=== PATIENT | female | born 1990 | race Caucasian/White ===

== ENCOUNTER 2016-11-04 20:10 | Inpatient (IN) | payer BC ==
[2016-11-04 20:21] LABS: Glucose,Whole Blood 107 mg/dL (75-99)
[2016-11-04] MEDS ORDERED: SODIUM CHLORIDE 0.9% 1,000 ML IV STA (20:28)
[2016-11-04] MEDS ORDERED: RX INFO: IV CONTRAST WAS GIVEN 1 EACH MISC MISCELLANE PRN (20:33)
--- NOTE | 2016-11-04 20:38 | ED ---
Neuro HPI <Joe Mccormick - Last Filed: 11/04/16 22:04> - General Source: patient Mode of arrival: ambulatory Limitations: no limitations - History of Present Illness Is the patient presenting with stroke symptoms?: Yes Last Known Well Date: 11/04/16 Last Known Well Time: 17:00 -: awoke with symptoms <Zen Almanza - Last Filed: 11/04/16 22:16> - General Chief Complaint: Weakness Stated Complaint: Headache Time Seen by Provider: 11/04/16 20:17 - History of Present Illness Initial Comments: This is a pleasant 26-year-old female who has a history of the MTHFR enzyme mutation. She presents to the emergency department today after developing balance issues at about 5 PM. She states she stood up and then noticed that she was off balance. She also states that her entire body feels heavy. 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 She states about an hour ago she started having blurriness in her right eye. She is describing a global blurriness. She is now getting a right-sided headache. She states her balance issues continue to be problematic. Patient states that she feels very off balance sometimes leading to both the left and the right. Patient denies any chest pain or shortness breath. No fever or chills. No difficulty with speech or swallowing. No paresthesias. No extremity weakness or focal weakness. No loss of sensation. Patient states that she has had 9 blood clots previously but is on no anticoagulation or antiplatelet therapy. Patient states that previously she was on both Lovenox and Coumadin and the had a hard time regulating it. She has been taken off medications. Patient does have a family history of poor kind disorders on her mother's side. Patient denies abdominal pain. No nausea vomiting. No change in bowel much urination. No chance of . (Zen Almanza) - Related Data Home Medications: Home Medications Medication Instructions Recorded Confirmed No Known Home Medications [No 11/04/16 11/04/16 Known Home Medications] Allergies/Adverse Reactions: Allergies Allergy/AdvReac Type Severity Reaction Status Date / Time clarithromycin [From Biaxin] Allergy Nausea & Verified 11/04/16 20:51 Vomiting Review of Systems ROS Other: All systems not noted in ROS Statement are negative. <Joe Mccormick - Last Filed: 11/04/16 22:04> ROS Other: All systems not noted in ROS Statement are negative. <Zen Almanza - Last Filed: 11/04/16 22:16> ROS Statement: Those systems with pertinent positive or pertinent negative responses have been documented in the HPI. General Exam <JaceJoe - Last Filed: 11/04/16 22:04> Limitations: no limitations General appearance: alert, anxious Head exam: Present: atraumatic, normocephalic, normal inspection Eye exam: Present: normal appearance, PERRL, EOMI, other (This patient has subjective blurred vision with the right eye. This appears to be more central than anything. She is able to ascertain from the fingers I'm holding up without difficulty). Absent: scleral icterus, conjunctival injection, periorbital swelling Pupils: Present: normal accommodation ENT exam: Present: normal exam, normal oropharynx, mucous membranes moist, TM's normal bilaterally Neck exam: Present: normal inspection, full ROM. Absent: tenderness, meningismus, lymphadenopathy Respiratory exam: Present: normal lung sounds bilaterally. Absent: respiratory distress, wheezes, rales, rhonchi, stridor Cardiovascular Exam: Present: regular rate, normal rhythm, normal heart sounds. Absent: systolic murmur, diastolic murmur, rubs, gallop, clicks GI/Abdominal exam: Present: soft, normal bowel sounds. Absent: distended, tenderness, guarding, rebound, rigid Extremities exam: Present: normal inspection, full ROM, normal capillary refill. Absent: tenderness, pedal edema, joint swelling, calf tenderness Back exam: Present: normal inspection, full ROM Neurological exam: Present: alert, oriented X3, CN II-XII intact, normal gait, other (Patient does have difficulty with Romberg. Patient also appears to have slight pronator drift on the right side.) Psychiatric exam: Present: normal affect, normal mood Skin exam: Present: warm, dry, intact, normal color. Absent: rash <Zen Almanza - Last Filed: 11/04/16 22:16> - General Exam Comments Initial Comments: So well-developed, well-nourished 46-year-old female who appears to be somewhat anxious. Patient appears have good peripheral perfusion. There is no evidence of cyanosis or pallor. No mottling. Capillary refills is 2 seconds. (Zen Almanza) Stroke MDM - Lab Data Result diagrams: 11/04/16 20:35 11/04/16 20:35 <Joe Mccormick - Last Filed: 11/04/16 22:04> - Lab Data Result diagrams: 11/04/16 20:35 11/04/16 20:35 - NIH Stroke Scale 1a. Level of Consciousness: (0) alert 1b. LOC Questions: (0) answers correctly 1c. LOC Commands: (0) performs tasks correctly 2. Best Gaze: (0) normal 3. Visual: (0) no visual loss 4. Facial Palsy: (0) normal symmetrical movement 5a. Motor Arm Left: (0) no drift 5b. Motor Arm Right: (1) drift 6a. Motor Leg Left: (0) no drift 6b. Motor Leg Right: (0) no drift 7. Limb Ataxia: (0) absent 8. Sensory: (0) normal 9. Best Language: (0) no aphasia 10. Dysarthria: (0) normal 11. Extinction/Inattention: (0) no abnormality - EKG Data -: EKG Interpreted by Me (Introverted by Dr. Mccormick) EKG shows normal: axis, intervals, QRS complexes, ST-T waves Rate: tachycardia (Sinus rhythm with sinus tachycardia 103 bpm) <Zen Almanza - Last Filed: 11/04/16 22:16> - Lab Data Lab Results 11/04/16 11/04/16 11/04/16 Range/Units 20:18 20:35 20:35 WBC 8.0 (3.8-10.6) k/uL RBC 4.67 (3.80-5.40) m/uL Hgb 15.0 (11.4-16.0) gm/dL Hct 42.7 (34.0-46.0) % MCV 91.4 (80.0-100.0) fL MCH 32.1 (25.0-35.0) pg MCHC 35.2 (31.0-37.0) g/dL RDW 12.1 (11.5-15.5) % Plt Count 259 (150-450) k/uL Neutrophils % 63 % Lymphocytes % 24 % Monocytes % 7 % Eosinophils % 1 % Basophils % 1 % Neutrophils # 5.1 (1.3-7.7) k/uL Lymphocytes # 1.9 (1.0-4.8) k/uL Monocytes # 0.6 (0-1.0) k/uL Eosinophils # 0.1 (0-0.7) k/uL Basophils # 0.1 (0-0.2) k/uL PT (9.0-12.0) sec INR (<1.1) APTT (22.0-30.0) sec Sodium (137-145) mmol/L Potassium (3.5-5.1) mmol/L Chloride (98-107) mmol/L Carbon Dioxide (22-30) mmol/L Anion Gap mmol/L BUN (7-17) mg/dL Creatinine (0.52-1.04) mg/dL Est GFR (MDRD) Af Amer (>60 ml/min/1.73 sqM) Est GFR (MDRD) Non-Af (>60 ml/min/1.73 sqM) Glucose (74-99) mg/dL POC Glucose (mg/dL) 107 H (75-99) mg/dL POC Glu Custom Harvester ID Khushboo Francis Calcium (8.4-10.2) mg/dL Magnesium (1.6-2.3) mg/dL Total Bilirubin (0.2-1.3) mg/dL AST (14-36) U/L ALT (9-52) U/L Alkaline Phosphatase (38-126) U/L Total Creatine Kinase 66 (30-135) U/L CK-MB (CK-2) <0.2 (0.0-2.4) ng/mL CK-MB (CK-2) Rel Index Troponin I <0.012 (0.000-0.034) ng/mL Total Protein (6.3-8.2) g/dL Albumin (3.5-5.0) g/dL Urine Color Urine Appearance (Clear) Urine pH (5.0-8.0) Ur Specific [place] (1.001-1.035) Urine Protein (Negative) Urine Glucose (UA) (Negative) Urine Ketones (Negative) Urine Blood (Negative) Urine Nitrite (Negative) Urine Bilirubin (Negative) Urine Urobilinogen (<2.0) mg/dL Ur Leukocyte Esterase (Negative) Urine HCG, Qual (Not Detectd) 11/04/16 11/04/16 11/04/16 Range/Units 20:35 20:35 20:56 WBC (3.8-10.6) k/uL RBC (3.80-5.40) m/uL Hgb (11.4-16.0) gm/dL Hct (34.0-46.0) % MCV (80.0-100.0) fL MCH (25.0-35.0) pg MCHC (31.0-37.0) g/dL RDW (11.5-15.5) % Plt Count (150-450) k/uL Neutrophils % % Lymphocytes % % Monocytes % % Eosinophils % % Basophils % % Neutrophils # (1.3-7.7) k/uL Lymphocytes # (1.0-4.8) k/uL Monocytes # (0-1.0) k/uL Eosinophils # (0-0.7) k/uL Basophils # (0-0.2) k/uL PT 10.6 (9.0-12.0) sec INR 1.0 (<1.1) APTT 24.3 (22.0-30.0) sec Sodium 139 (137-145) mmol/L Potassium 4.2 (3.5-5.1) mmol/L Chloride 104 (98-107) mmol/L Carbon Dioxide 22 (22-30) mmol/L Anion Gap 13 mmol/L BUN 12 (7-17) mg/dL Creatinine 0.81 (0.52-1.04) mg/dL Est GFR (MDRD) Af Amer >60 (>60 ml/min/1.73 sqM) Est GFR (MDRD) Non-Af >60 (>60 ml/min/1.73 sqM) Glucose 99 (74-99) mg/dL POC Glucose (mg/dL) (75-99) mg/dL POC Glu Custom Harvester ID Calcium 9.7 (8.4-10.2) mg/dL Magnesium 2.2 (1.6-2.3) mg/dL Total Bilirubin 0.7 (0.2-1.3) mg/dL AST 21 (14-36) U/L ALT 34 (9-52) U/L Alkaline Phosphatase 49 (38-126) U/L Total Creatine Kinase (30-135) U/L CK-MB (CK-2) (0.0-2.4) ng/mL CK-MB (CK-2) Rel Index Troponin I (0.000-0.034) ng/mL Total Protein 8.0 (6.3-8.2) g/dL Albumin 4.6 (3.5-5.0) g/dL Urine Color Light Yellow Urine Appearance Clear (Clear) Urine pH 7.0 (5.0-8.0) Ur Specific [place] 1.029 (1.001-1.035) Urine Protein Negative (Negative) Urine Glucose (UA) Negative (Negative) Urine Ketones Negative (Negative) Urine Blood Negative (Negative) Urine Nitrite Negative (Negative) Urine Bilirubin Negative (Negative) Urine Urobilinogen <2.0 (<2.0) mg/dL Ur Leukocyte Esterase Negative (Negative) Urine HCG, Qual (Not Detectd) 11/04/16 Range/Units 20:56 WBC (3.8-10.6) k/uL RBC (3.80-5.40) m/uL Hgb (11.4-16.0) gm/dL Hct (34.0-46.0) % MCV (80.0-100.0) fL MCH (25.0-35.0) pg MCHC (31.0-37.0) g/dL RDW (11.5-15.5) % Plt Count (150-450) k/uL Neutrophils % % Lymphocytes % % Monocytes % % Eosinophils % % Basophils % % Neutrophils # (1.3-7.7) k/uL Lymphocytes # (1.0-4.8) k/uL Monocytes # (0-1.0) k/uL Eosinophils # (0-0.7) k/uL Basophils # (0-0.2) k/uL PT (9.0-12.0) sec INR (<1.1) APTT (22.0-30.0) sec Sodium (137-145) mmol/L Potassium (3.5-5.1) mmol/L Chloride (98-107) mmol/L Carbon Dioxide (22-30) mmol/L Anion Gap mmol/L BUN (7-17) mg/dL Creatinine (0.52-1.04) mg/dL Est GFR (MDRD) Af Amer (>60 ml/min/1.73 sqM) Est GFR (MDRD) Non-Af (>60 ml/min/1.73 sqM) Glucose (74-99) mg/dL POC Glucose (mg/dL) (75-99) mg/dL POC Glu Custom Harvester ID Calcium (8.4-10.2) mg/dL Magnesium (1.6-2.3) mg/dL Total Bilirubin (0.2-1.3) mg/dL AST (14-36) U/L ALT (9-52) U/L Alkaline Phosphatase (38-126) U/L Total Creatine Kinase (30-135) U/L CK-MB (CK-2) (0.0-2.4) ng/mL CK-MB (CK-2) Rel Index Troponin I (0.000-0.034) ng/mL Total Protein (6.3-8.2) g/dL Albumin (3.5-5.0) g/dL Urine Color Urine Appearance (Clear) Urine pH (5.0-8.0) Ur Specific [place] (1.001-1.035) Urine Protein (Negative) Urine Glucose (UA) (Negative) Urine Ketones (Negative) Urine Blood (Negative) Urine Nitrite (Negative) Urine Bilirubin (Negative) Urine Urobilinogen (<2.0) mg/dL Ur Leukocyte Esterase (Negative) Urine HCG, Qual Not Detected (Not Detectd) - Medical Decision Making Patient was immediately reported to Dr. Mccormick, the ER attending physician. Decision was made to send the patient for a CT, and CT angiogram of the head and neck. (Zen Almanza) Past Medical History Additional Past Medical History / Comment(s): irregular heart rate, factor 5 MTHFR History of Any Multi-Drug Resistant Organisms: None Reported Past Surgical History: Tonsillectomy Additional Past Surgical History / Comment(s): left crapal tunnel release Past Psychological History: No Psychological Hx Reported Smoking Status: Never smoker Past Alcohol Use History: Occasional Past Drug Use History: None Reported <Zen Almanza - Last Filed: 11/04/16 22:16> Course <Joe Mccormick - Last Filed: 11/04/16 22:04> <Zen Almanza - Last Filed: 11/04/16 22:16> Vital Signs 11/04/16 11/04/16 11/04/16 20:11 20:14 20:20 Temperature 98.1 F Pulse Rate 111 H 101 H 104 H Respiratory 20 18 18 Rate Blood Pressure 142/87 116/82 122/78 O2 Sat by Pulse 96 100 98 Oximetry 11/04/16 11/04/16 20:45 21:00 Temperature Pulse Rate 102 H 98 Respiratory 18 16 Rate Blood Pressure 118/87 114/76 O2 Sat by Pulse 100 97 Oximetry - Reevaluation(s) Reevaluation #1: 11/04/16 22:04 Patient reevaluated by myself, Dr. Mccormick. Patient started with feeling off balance followed by some visual problems followed by headache. Patient has continued headache. Patient did have some difficulty with Romberg and walking. Patient does have a history of Mthfr. Case was discussed in detail with Dr. Leyva who will admit for Dr. Hubbard. She recommends adding MRI with and without contrast and MRA as well as neurology consult. Patient was updated. ( Joe Mccormick) Reevaluation #2: 11/04/16 21:14 Patient is essentially unchanged. Patient has no new neurologic findings. Patient states that her headache is mildly worsened. Rating a 4 out of 10 in intensity right parietal area (Zen Almanza) Disposition <Joe Mccormick - Last Filed: 11/04/16 22:04> Time of Disposition: 22:15 Decision to Admit Reason: Admit from EC Decision Date: 11/04/16 Decision Time: 22:16 <Zen Almanza - Last Filed: 11/04/16 22:16> Clinical Impression: Visual disturbance, Gait disturbance, Headache Disposition: ADMITTED IP TO THIS [facility] Condition: Stable
[2016-11-04 20:43] LABS: Basophils # (A) 0.1 k/uL (0-0.2); Basophils % (A) 1 %; CH 32.7; CHCM 35.9; Eosinophils # (A) 0.1 k/uL (0-0.7); Eosinophils % (A) 1 %; HCT 42.7 % (34.0-46.0); HDW 2.45; Luc # (Auto) 0.23; Luc % (Auto) 3; Lymphocytes # (A) 1.9 k/uL (1.0-4.8); Lymphocytes % (A) 24 %; MCH 32.1 pg (25.0-35.0); MCHC 35.2 g/dL (31.0-37.0); MCV 91.4 fL (80.0-100.0); Mean Platelet Volume 7.6; Monocytes # (A) 0.6 k/uL (0-1.0); Monocytes % (A) 7 %; Neutrophils # (A) 5.1 k/uL (1.3-7.7); Neutrophils % (A) 63 %; RBC 4.67 m/uL (3.80-5.40); RDW 12.1 % (11.5-15.5); WBC (Perox) 8.03
[2016-11-04 20:54] LABS: ALT 34 U/L (9-52); AST 21 U/L (14-36); Alkaline Phosphatase 49 U/L (38-126); Anion Gap 13 mmol/L; Blood Urea Nitrogen 12 mg/dL (7-17); Calcium 9.7 mg/dL (8.4-10.2); Carbon Dioxide 22 mmol/L (22-30); Chloride 104 mmol/L (98-107); Glucose 99 mg/dL (74-99); Magnesium 2.2 mg/dL (1.6-2.3); Non-African American GFR(MDRD) >60 (>60 ml/min/1.73 sqM); Partial Thromboplastin Time 24.3 sec (22.0-30.0); Potassium 4.2 mmol/L (3.5-5.1); Prothrombin Time 10.6 sec (9.0-12.0); Sodium 139 mmol/L (137-145); Total Bilirubin 0.7 mg/dL (0.2-1.3)
--- NOTE | 2016-11-04 21:03 | CT ---
EXAMINATION TYPE: CT brain wo con DATE OF EXAM: 11/04/2016 8:49 PM COMPARISON: NONE HISTORY: Patient complains of blurred vision and headache. CT DLP: 849.5 mGycm Automated exposure control for dose reduction was used. FINDINGS: The ventricles and sulci appear normal. There is no mass effect nor midline shift. There is no sign o f intracranial hemorrhage. The calvarium is intact. IMPRESSION: Negative unenhanced head CT scan.
[2016-11-04 21:04] LABS: Appearance,Urine Clear (Clear); Bilirubin,Urine Negative (Negative); Glucose,Urine (UA) Negative (Negative); Ketones,Urine Negative (Negative); Leukocyte Esterase,Urine Negative (Negative); Nitrite,Urine Negative (Negative); Protein,Urine Negative (Negative); Specific Gravity,Urine 1.029 (1.001-1.035); UA Billing (MACRO vs. MICRO) CHEM; Urobilinogen,Urine <2.0 mg/dL (<2.0)
[2016-11-04 21:07] LABS: Creatine Kinase 66 U/L (30-135)
--- NOTE | 2016-11-04 21:19 | CT ---
EXAMINATION TYPE: CT angio head neck DATE OF EXAM: 11/04/2016 9:06 PM COMPARISON: NONE HISTORY: Patient complains of blurry vision and headache. CT DLP: 289.1 mGycm Automated exposure control for dose reduction was used. TECHNIQUE: Performed with IV Contrast, patient injected with 65 mL of Omnipaque 350. There are 3-D post processed images.. FINDINGS: There is normal branching pattern of the great vessels on the aortic arch. Left vertebral artery is l arger than the right. There is contrast opacification of the common internal and external carotid art eries bilaterally. There is no evidence of stenosis. There is no sign of carotid dissection. There is patency of the vertebrobasilar artery system. Basilar artery fills from the left side. I see no patency of the posterior communicating arteries. There is arterial flow in the anterior midd le and posterior cerebral arteries. There is no evidence of aneurysm or neovascularity. There is norm al contrast opacification of the venous sinuses. IMPRESSION: NORMAL CT ANGIOGRAM OF THE NECK. NORMAL CT ANGIOGRAM OF THE BRAIN.
[2016-11-04 21:20] LABS: Creatine Kinase MB <0.2 ng/mL (0.0-2.4); Troponin I <0.012 ng/mL (0.000-0.034)
--- NOTE | 2016-11-04 21:20 | XR ---
EXAMINATION TYPE: XR chest 1V portable DATE OF EXAM: 11/04/2016 9:15 PM COMPARISON: 04/29/2011 HISTORY: Blurred vision TECHNIQUE: Single frontal view of the chest is obtained. FINDINGS: Heart and mediastinum are normal. Lungs are clear. Diaphragm is normal. Bony thorax appear s normal. IMPRESSION: Normal chest. No change.
[2016-11-04] MEDS ORDERED: ASPIRIN 325 MG TAB PO STA (21:36)
[2016-11-04] MEDS ORDERED: MORPHINE SULFATE 4 MG/ML SYRINGE IV STA (22:14)
[2016-11-04] MEDS ORDERED: KETOROLAC 30 MG/ML 1 ML VIAL IVP STA (22:14)
[2016-11-04] MEDS ORDERED: ONDANSETRON 4 MG/2 ML VIAL IVP STA (22:14)
[2016-11-04] MEDS ORDERED: ACETAMINOPHEN TAB 325 MG TAB PO PRN (22:20)
[2016-11-04] MEDS ORDERED: LORazepam 2 MG/ML SYRINGE IV PRN (22:20)
[2016-11-04] MEDS ORDERED: ONDANSETRON 4 MG/2 ML VIAL IVP PRN (22:20)
[2016-11-04] MEDS ORDERED: NALOXONE 0.4 MG/ML 1 ML VIAL IV PRN (22:20)
[2016-11-04] MEDS: 0.9% NACL WITH KCL 20 MEQ/L 1,000 ML IV SCH (22:43)
[2016-11-04 23:10] VITALS: BMI 27.4
[2016-11-05] MEDS ORDERED: MORPHINE SULFATE 4 MG/ML SYRINGE ONE (00:45)
[2016-11-05] MEDS ORDERED: ACETAMINOPHEN TAB 325 MG TAB ONE (00:45)
[2016-11-05 08:18] LABS: Basophils % (A) 1 %; CH 32.4; CHCM 34.5; Eosinophils # (A) 0.1 k/uL (0-0.7); Eosinophils % (A) 2 %; HCT 38.5 % (34.0-46.0); HDW 2.41; HGB 13.3 gm/dL (11.4-16.0); Luc # (Auto) 0.23; Luc % (Auto) 4; Lymphocytes # (A) 2.1 k/uL (1.0-4.8); Lymphocytes % (A) 38 %; MCH 32.4 pg (25.0-35.0); MCHC 34.4 g/dL (31.0-37.0); MCV 94.1 fL (80.0-100.0); Mean Platelet Volume 7.5; Monocytes # (A) 0.4 k/uL (0-1.0); Monocytes % (A) 6 %; Neutrophils # (A) 2.8 k/uL (1.3-7.7); Neutrophils % (A) 49 %; RDW 12.2 % (11.5-15.5); WBC 5.7 k/uL (3.8-10.6); WBC (Perox) 6.18
[2016-11-05 08:29] LABS: ALT 32 U/L (9-52); AST 17 U/L (14-36); Alkaline Phosphatase 44 U/L (38-126); Anion Gap 9 mmol/L; Blood Urea Nitrogen 11 mg/dL (7-17); Calcium 8.7 mg/dL (8.4-10.2); Carbon Dioxide 24 mmol/L (22-30); Chloride 108 mmol/L (98-107); Glucose 84 mg/dL (74-99); Magnesium 2.2 mg/dL (1.6-2.3); Non-African American GFR(MDRD) >60 (>60 ml/min/1.73 sqM); Potassium 4.5 mmol/L (3.5-5.1); Sodium 141 mmol/L (137-145); Total Bilirubin 0.6 mg/dL (0.2-1.3); Total Protein 6.5 g/dL (6.3-8.2)
--- NOTE | 2016-11-05 09:58 | MR ---
EXAMINATION TYPE: MR brain wo/w con DATE OF EXAM: 11/05/2016 9:33 AM COMPARISON: CT brain 11/04/2016 HISTORY: Visual disturbance, headache, balance disturbance CONTRAST: Performed utilizing 15 mL intravenous MultiHance gadolinium contrast. TECHNIQUE: Multiplanar, multiecho imaging on a 3.0 Yovana magnet is performed through the brain. Stud y is performed within 24 hours of arrival to the hospital. The craniovertebral junction is normal. The pituitary is normal. Diffusion-weighted imaging is performed. No abnormal hyperintensity is present to suggest an acute i ntracranial infarct or acute ischemic change. Signal through the brain is normal. No abnormal enhancement is evident. Ventricles and sulci are appropriate for the patient age. Normal vascular flow voids are within the distal internal carotid arteries and in the basilar artery. Portions of the paranasal sinuses mastoid air cells within the [id number] are clear. The orbits ap pear symmetrical and unremarkable. IMPRESSIONS: 1. Normal pre and postcontrast MRI brain
--- NOTE | 2016-11-05 10:05 | MR ---
EXAMINATION TYPE: MR MRA/MRV head wo con DATE OF EXAM: 11/05/2016 9:33 AM COMPARISON: CTA brain 11/04/2016 HISTORY: Visual disturbance, headache Standard multiplanar, multisequence MRI departmental protocol Multiplanar, multisequence images of the 1.5 were acquired. 3-D [id number] imaging is performed t hrough the arterial and venous systems. FINDINGS: MRA: The internal carotid arteries bifurcate normally into A1 and M1 segments. A2 segments appear normal. Middle cerebral artery branches appear normal. The left vertebral artery is dominant. A diminutive right vertebral artery is partially visualized. B asilar artery is unremarkable. Posterior cerebral vasculature appears normal. Posterior communicating arteries are patent. Anterior communicating artery appears to be patent. MRV: Venous phase imaging is performed. 3-D [id number] reconstructed images are reviewed The dural sinuses patent. Straight sinus is patent. Sigmoid sinuses are patent. On the MRV images the re is a filling defect of the left sigmoid sinus. However, this is not identified on source images or MRI brain contrast imaging this may be artifact. This appears to be related to the entrance of a cou ple draining veins MRI brain contrast images. IMPRESSION: 1. Normal MRA nondal[place] of [place]. 2. No suspicious changes MRV brain
[2016-11-05] MEDS: MORPHINE SULFATE 4 MG/ML SYRINGE IV PRN ×3 (10:16→20:35)
[2016-11-05] MEDS: 0.9% NACL WITH KCL 20 MEQ/L 1,000 ML IV SCH (12:16)
[2016-11-05] MEDS ORDERED: MAGNESIUM SULFATE-D5W PMX 1 GM in DEXTROSE/WATER 1 100ML.BAG IVPB SCH (16:05)
--- NOTE | 2016-11-05 16:05 | P.CNNES ---
History of Present Illness Consult date: 11/05/16 Reason for Consult: Visual disturbance, a disturbance History of Present Illness: Patient is a pleasant 26-year-old female who is being evaluated by the neurology service on 11/05/2016 per the request of Dr. Leyva for visual disturbance and gait disturbance. Patient does have history of MTHFR but is currently not on any medication for this. 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 She had come to work and noticed that she was progressively becoming off balance. She reports having had her whole body feel heavy since waking up in the morning. Patient states her vision in her right eye became blurry. Shortly following visual disturbance she noticed a right-sided headache. Patient states headache is ongoing. Patient had CT of the brain done which was negative for any acute process. Patient had CT angiogram of the neck and CT angiogram of the brain both of which were normal. Patient had normal pre-and postcontrast MRI of the brain. Patient's laboratory workup on admission was unremarkable. Vital signs on admission for temperature 98.1, pulse rate 111, respiratory rate 20, blood pressure 142/87, and O2 saturation of 96% on room air. At the time of my evaluation, patient's resting comfortably in bed and appears to be in no acute distress. Review of Systems REVIEW OF SYSTEMS: Otherwise unremarkable and noncontributory. Past Medical History Additional Past Medical History / Comment(s): irregular heart rate, factor 5 MTHFR History of Any Multi-Drug Resistant Organisms: None Reported Past Surgical History: Tonsillectomy Additional Past Surgical History / Comment(s): left crapal tunnel release Past Psychological History: No Psychological Hx Reported Smoking Status: Never smoker Past Alcohol Use History: Occasional Past Drug Use History: None Reported Medications and Allergies Home Medications Medication Instructions Recorded Confirmed Type No Known Home Medications [No 11/04/16 11/04/16 History Known Home Medications] Allergies Allergy/AdvReac Type Severity Reaction Status Date / Time clarithromycin [From Biaxin] Allergy Nausea & Verified 11/04/16 20:51 Vomiting Physical Examination - Vital Signs Vital Signs: Vital Signs Temp Pulse Pulse Resp BP BP Pulse Ox 11/05/16 13:20 97 11/05/16 07:00 97.8 F 81 16 107/63 97 11/05/16 00:00 87 16 04/13/17 23:15 98.2 F 87 16 126/79 96 11/04/16 22:28 98.1 F 96 18 133/90 99 Intake and Output 11/05/16 11/05/16 11/05/16 06:59 14:59 22:59 Intake Total 1600 Balance 1600 Intake: Intake, IV Titration 800 Amount 0.9% NaCl with KCl 20 Meq 800 /l 1,000 ml @ 100 mls/hr IV .Q10H JD Rx#: [id number] Oral 800 Other: Voiding Method Toilet Weight 77.111 kg PHYSICAL EXAM: GENERAL APPEARANCE: Patient is a well-developed, female who appears to be in no acute distress. HEENT: Normocephalic, atraumatic, no facial asymmetry is seen. Neck is supple with no masses felt. CARDIOVASCULAR: Regular rate and rhythm. ABDOMEN: Nontender, nondistended. EXTREMITIES: Show no edema or clubbing. NEUROLOGICAL EXAM: Patient is awake, alert, and oriented 3. Speech and language are normal. Strength is full in all 4 extremities. Sensory exam to light touch is normal in all 4 extremities. No facial asymmetry is seen on cranial nerve testing. No tremors or seizure-like activity noted. Results - Laboratory Findings CBC and BMP: 11/05/16 07:23 11/05/16 07:20 Abnormal Lab Findings: Abnormal Labs 11/05/16 07:20 Chloride 108 H Assessment and Plan Plan: Impression: 1. Migraine with neurological symptoms 2. History of MTHFR 3. Visual disturbance 4. Gait disturbance Recommendations: It does appear that patient has migraine headache with neurological symptoms. As mentioned above, studies up to this point have all been within normal limits. I will order magnesium sulfate, Solu-Medrol, and Reglan to help alleviate the headache. Continue neurological checks. I recommend patient continue to follow with hematology in regards to MTHFR. I will continue to follow with you. Further recommendations to follow. Thank you for allowing me to participate in the care of your patient. Feel free to call me with any questions or concerns. I performed an examination of the patient and discussed the management with the REC THERAPIST. I have reviewed the REC THERAPIST notes and agree with the findings and plan of care.
[2016-11-05] MEDS: METOCLOPRAMIDE 5 MG/ML 2 ML VIAL IVP SCH (17:50)
--- NOTE | 2016-11-05 18:50 | P.HPIM ---
History of Present Illness H&P Date: 11/05/16 Chief Complaint: Impaired balance generalized weakness right-sided headache This is a 26 year old pleasant lady patient of Dr. Odell with known history of MP HFR, factor V Leyden, and 9 previous DVT PE since 2010, follows with Dr. Paulino not on any long-term anticoagulation, patient has had problems with imbalance on the day of admission, patient has generalized weakness from the neck down and right-sided headache. 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 In the emergency room angiography of the neck was performed which shows normal angiogram of the neck and brain without any abnormality or stenosis, patient was admitted with evaluation to include consultation from neurology, orthostatics will be obtained, vasculitis and acute thrombotic infarct is to be ruled out 11/05 2016 no evidence of dissection, MRA shows normal [place] of [place], there is slight filling defect of the left sigmoid sinus however these is not identified on contrast studies this could be artifactual, MR I of the brain shows normal PA and postcontrast studies. Patient was admitted Review of Systems Constitutional: Reports as per HPI, Denies anorexia, Denies chills, Denies chronic headaches, Denies chronic pain, Denies daytime sleepiness, Denies fatigue, Denies fever, Denies lethargy, Denies malaise, Denies night sweats, Denies poor appetite, Denies sweats, Denies weakness, Denies weight gain, Denies weight loss Ears, nose, mouth and throat: Reports as per HPI, Reports vertigo, Denies ant. neck pain, Denies bleeding gums, Denies dental pain, Denies dysphagia, Denies epistaxis, Denies headache, Denies hoarseness, Denies mouth pain, Denies nasal congestion, Denies nasal discharge, Denies neck fullness/pressure, Denies neck lump, Denies nose pain, Denies odynophagia, Denies post-nasal drip, Denies sinus pain, Denies sinus pressure, Denies swelling in mouth, Denies swelling in throat, Denies sore throat, Denies voice changes Cardiovascular: Reports as per HPI, Denies chest pain, Denies claudication, Denies decreased exercise tolerance, Denies dyspnea on exertion, Denies edema, Denies high blood pressure, Denies irregular heart beat, Denies leg edema, Denies lightheadedness, Denies orthopnea, Denies palpitations, Denies paroxysmal nocturnal dyspnea, Denies phlebitis, Denies rapid heart beat, Denies shortness of breath, Denies syncope Respiratory: Reports as per HPI, Denies congestion, Denies cough, Denies cough with sputum, Denies dyspnea, Denies excessive sputum, Denies hemoptysis, Denies home oxygen, Denies pain, Denies pain on inspiration, Denies pleurisy, Denies respiratory infections, Denies sleep apnea, Denies snoring, Denies wheezing Gastrointestinal: Reports as per HPI, Denies abdominal pain, Denies belching, Denies bloating, Denies BRBPR, Denies change in bowel habits, Denies coffee ground emesis, Denies constipation, Denies diarrhea, Denies dyspepsia, Denies early satiety, Denies excessive gas, Denies heartburn, Denies hematemesis, Denies hematochezia, Denies indigestion, Denies jaundice, Denies lactose intolerance, Denies loss of appetite, Denies melena, Denies nausea, Denies vomiting Genitourinary: Reports as per HPI, Denies abnormal vaginal bleeding, Denies decreased libido, Denies difficulty conceiving, Denies difficulty voiding, Denies dysmenorrhea, Denies dyspareunia, Denies dysuria, Denies flank pain, Denies genital sores, Denies hematuria, Denies hot flashes, Denies incomplete emptying, Denies kidney stones, Denies menorrhagia, Denies mixed incontinence, Denies nocturia, Denies pelvic pain, Denies post void dribbling, Denies , Denies prolapse symptoms, Denies stress incontinence, Denies urge incontinence , Denies urgency, Denies urinary frequency, Denies vaginal discharge, Denies vaginal dryness, Denies vaginal itching, Denies vaginal odor Menstruation: Reports as per HPI Musculoskeletal: Reports as per HPI, Reports gait dysfunction, Reports muscle weakness, Reports myalgias, Denies arm numbness/tingling, Denies atrophy, Denies fractures, Denies frequent falls, Denies hot joints, Denies leg numbness/ tingling, Denies limitation of motion, Denies loss of height, Denies low back pain, Denies morning stiffness, Denies muscle cramps, Denies neck pain, Denies neck stiffness, Denies prior amputations, Denies redness of joints, Denies shooting arm pain, Denies shooting leg pain Integumentary: Reports as per HPI, Denies acne, Denies boils, Denies brittle nails, Denies change in hair/nails, Denies color changes, Denies darkening of skin, Denies depigmentation, Denies dryness, Denies foot/leg ulcers, Denies growths, Denies hirsutism, Denies lesions, Denies onychomycosis, Denies pruritus , Denies rash, Denies sores, Denies striae, Denies unusual bruising, Denies wounds Neurological: Reports as per HPI, Denies aphasia, Denies ataxia, Denies balance difficulties, Denies burning pain, Denies change in mentation, Denies change in smell/taste, Denies change in speech, Denies confusion, Denies convulsions, Denies double vision, Denies gait dysfunction, Denies head injury, Denies headaches, Denies hearing difficulties, Denies lack of coordination, Denies loss of vision, Denies memory loss, Denies migraines, Denies motor disturbance, Denies numbness, Denies paralysis, Denies paresthesias, Denies seizures, Denies sensory deficit, Denies spasticity, Denies syncope, Denies tic, Denies tingling , Denies transient paralysis, Denies tremors, Denies vertigo, Denies weakness, Denies visual changes Psychiatric: Reports as per HPI, Denies anhedonia, Denies anxiety, Denies anxiety attacks, Denies change in appetite, Denies change in libido, Denies change in sleep habits, Denies confusion, Denies depression, Denies difficulty concentrating, Denies disorientation, Denies hallucinations, Denies hopelessness , Denies hypersomnia, Denies insomnia, Denies irritability, Denies memory loss, Denies mood swings, Denies paranoia, Denies sadness/tearfulness, Denies sleep disturbances, Denies suicidal ideation Endocrine: Reports as per HPI, Denies cold intolerance, Denies deepening of the voice, Denies excessive sweating, Denies excessive thirst, Denies fatigue, Denies flushing, Denies heat intolerance, Denies high blood sugars, Denies increase in ring/shoe/hat size, Denies low blood sugars, Denies nocturia, Denies palpitations, Denies polydipsia, Denies polyphagia, Denies polyuria, Denies proptosis, Denies recent glucocorticoid use, Denies thyroid mass, Denies weight change Hematologic/Lymphatic: Reports as per HPI, Denies easy bleeding, Denies easy bruising, Denies lymphadenopathy, Denies lymphedema, Denies thrombophilia Allergic/Immunologic: Reports as per HPI, Denies allergic rhinitis, Denies anaphylaxis, Denies angioedema, Denies gluten intolerance, Denies persistent infections, Denies seasonal allergies, Denies urticaria, Denies wheezing Past Medical History Past Medical History: Pulmonary Embolus (PE) (2010 had 9 episodes off PE/DVT mostofthemarewithnovomiting) Additional Past Medical History / Comment(s): irregular heart rate, factor 5 MTHFR History of Any Multi-Drug Resistant Organisms: None Reported Past Surgical History: Tonsillectomy Additional Past Surgical History / Comment(s): left crapal tunnel release Past Psychological History: No Psychological Hx Reported Smoking Status: Never smoker Past Alcohol Use History: Occasional Past Drug Use History: None Reported - Past Family History Father Family Medical History: No Reported History Mother History Unknown: Yes (MT HFR and factor V) Sister(s) History Unknown: Yes (MT HFR) Medications and Allergies Home Medications Medication Instructions Recorded Confirmed Type No Known Home Medications [No 11/04/16 11/04/16 History Known Home Medications] Allergies Allergy/AdvReac Type Severity Reaction Status Date / Time clarithromycin [From Biaxin] Allergy Nausea & Verified 11/04/16 20:51 Vomiting Physical Exam Vitals: Vital Signs Temp Pulse Pulse Resp BP BP Pulse Ox 11/05/16 13:20 97 11/05/16 07:00 97.8 F 81 16 107/63 97 11/05/16 00:00 87 16 11/04/16 23:15 98.2 F 87 16 126/79 96 11/04/16 22:28 98.1 F 96 18 133/90 99 Intake and Output 0411/05/16 11/05/16 22:59 06:59 14:59 Intake Total 1600 Balance 1600 Intake: Intake, IV Titration 800 Amount 0.9% NaCl with KCl 20 Meq 800 /l 1,000 ml @ 100 mls/hr IV .Q10H [facility] Rx#: [id number] Oral 800 Other: Voiding Method Toilet Weight 77.111 kg - Constitutional General appearance: average body habitus, cooperative, no acute distress - EENT Eyes: no abnormal pupil, anicteric sclerae, no disc margins sharp, no edentulous , EOMI, PERRLA, no fundus normal, no photophobia, no dentition normal, no poor dentition, no ptosis, no scleral icterus, normal appearance ENT: no hard of hearing, hearing grossly normal, NA/AT, normal oropharynx, no other, no pharyngeal erythema, no thrush, no tonsillar exudates, no tonsillar swelling - Neck Neck: no lymphadenopathy, normal ROM, no other, no rigidity, no stridor, no thyromegaly - Respiratory Respiratory: bilateral: CTA, negative: diminished, dullness, rales, rhonchi, wheezing, prolonged expiration - Cardiovascular Rhythm: regular Heart sounds: normal: S1, S2 Abnormal Heart Sounds: no systolic murmur, no diastolic murmur, no rub, no S3 Gallop, no S4 Gallop, no click, no other - Gastrointestinal General gastrointestinal: normal bowel sounds, soft - Integumentary Integumentary: normal, normal turgor - Neurologic Neurologic: CNII-XII intact - Musculoskeletal Musculoskeletal: gait normal (Minor impairment noted with the left), strength equal bilaterally ( sided gait instability) - Psychiatric Psychiatric: A&O x's 3, appropriate affect, intact judgment & insight Results CBC & Chem 7: 11/05/16 07:23 11/05/16 07:20 Labs: Abnormal Lab Results - Last 24 Hours (Table) 11/05/16 Range/Units 07:20 Chloride 108 H (98-107) mmol/L Laboratory Results WBC 5.7 k/uL (3.8-10.6) 11/05/16 07:23 RBC 4.10 m/uL (3.80-5.40) 11/05/16 07:23 Hgb 13.3 gm/dL (11.4-16.0) 11/05/16 07:23 Hct 38.5 % (34.0-46.0) 11/05/16 07:23 MCV 94.1 fL (80.0-100.0) 11/05/16 07:23 MCH 32.4 pg (25.0-35.0) 11/05/16 07:23 MCHC 34.4 g/dL (31.0-37.0) 11/05/16 07:23 RDW 12.2 % (11.5-15.5) 11/05/16 07:23 Plt Count 217 k/uL (150-450) 11/05/16 07:23 Neutrophils % 49 % 11/05/16 07:23 Lymphocytes % 38 % 11/05/16 07:23 Monocytes % 6 % 11/05/16 07:23 Eosinophils % 2 % 11/05/16 07:23 Basophils % 1 % 11/05/16 07:23 Neutrophils # 2.8 k/uL (1.3-7.7) 11/05/16 07:23 Lymphocytes # 2.1 k/uL (1.0-4.8) 11/05/16 07:23 Monocytes # 0.4 k/uL (0-1.0) 11/05/16 07:23 Eosinophils # 0.1 k/uL (0-0.7) 11/05/16 07:23 Basophils # 0.0 k/uL (0-0.2) 11/05/16 07:23 PT 10.6 sec (9.0-12.0) 11/04/16 20:35 INR 1.0 (<1.1) 11/04/16 20:35 APTT 24.3 sec (22.0-30.0) 11/04/16 20:35 Sodium 141 mmol/L (137-145) 11/05/16 07:20 Potassium 4.5 mmol/L (3.5-5.1) 11/05/16 07:20 Chloride 108 mmol/L (98-107) H 11/05/16 07:20 Carbon Dioxide 24 mmol/L (22-30) 11/05/16 07:20 Anion Gap 9 mmol/L 11/05/16 07:20 BUN 11 mg/dL (7-17) 11/05/16 07:20 Creatinine 0.86 mg/dL (0.52-1.04) 11/05/16 07:20 Est GFR (MDRD) Af Amer >60 (>60 ml/min/1.73 sqM) 11/05/16 07:20 Est GFR (MDRD) Non-Af >60 (>60 ml/min/1.73 sqM) 11/05/16 07:20 Glucose 84 mg/dL (74-99) 11/05/16 07:20 POC Glucose (mg/dL) 107 mg/dL (75-99) H 11/04/16 20:18 POC Glu Cold Roll Inspector ID Khushboo Francis 11/04/16 20:18 Calcium 8.7 mg/dL (8.4-10.2) 11/05/16 07:20 Magnesium 2.2 mg/dL (1.6-2.3) 11/05/16 07:20 Total Bilirubin 0.6 mg/dL (0.2-1.3) 11/05/16 07:20 AST 17 U/L (14-36) 11/05/16 07:20 ALT 32 U/L (9-52) 11/05/16 07:20 Alkaline Phosphatase 44 U/L (38-126) 11/05/16 07:20 Total Creatine Kinase 66 U/L (30-135) 11/04/16 20:35 CK-MB (CK-2) <0.2 ng/mL (0.0-2.4) 11/04/16 20:35 CK-MB (CK-2) Rel Index 11/04/16 20:35 Troponin I <0.012 ng/mL (0.000-0.034) 11/04/16 20:35 Total Protein 6.5 g/dL (6.3-8.2) 11/05/16 07:20 Albumin 3.7 g/dL (3.5-5.0) 11/05/16 07:20 Vitamin B12 275 pg/mL (239-931) 11/05/16 07:20 Urine Color Light Yellow 11/04/16 20:56 Urine Appearance Clear (Clear) 11/04/16 20:56 Urine pH 7.0 (5.0-8.0) 11/04/16 20:56 Ur Specific [place] 1.029 (1.001-1.035) 11/04/16 20:56 Urine Protein Negative (Negative) 11/04/16 20:56 Urine Glucose (UA) Negative (Negative) 11/04/16 20:56 Urine Ketones Negative (Negative) 11/04/16 20:56 Urine Blood Negative (Negative) 11/04/16 20:56 Urine Nitrite Negative (Negative) 11/04/16 20:56 Urine Bilirubin Negative (Negative) 11/04/16 20:56 Urine Urobilinogen <2.0 mg/dL (<2.0) 11/04/16 20:56 Ur Leukocyte Esterase Negative (Negative) 11/04/16 20:56 Urine HCG, Qual Not Detected (Not Detectd) 11/04/16 20:56 Thrombosis Risk Factor Assmnt - DVT/VTE Prophylaxis DVT/VTE Prophylaxis: Pharmacologic Prophylaxis ordered, Mechanical Prophylaxis ordered - Choose All That Apply Each Risk Factor Represents 3 Points: Positive Factor V Leiden, Family history of DVT/PE Thrombosis Risk Factor Assessment Total Risk Factor Score: 6 Thrombosis Risk Factor Assessment Level: High Risk Assessment and Plan Plan: 1. 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 Known history of factor V laden with MTHFR mutation 3. Prior history of PE DVT last episode 2010 4. Right-sided headache, with multifactorial, patient does not have any history of migraines, hydration and sleep needs to be corrected, melatonin 6 mg was started, magnesium sulfate was given, with morphine when necessary Zofran when necessary morphine when necessary patient was started on Solu-Medrol by neurology 5. DVT prophylaxis with her high risk genetics, she'll be started on Lovenox and mechanical prophylaxis 6. GI prophylaxis IV Pepcid Ovarian cyst history under workup by [place] [employer] SEWER
[2016-11-05] MEDS ORDERED: MELATONIN 3 MG TABLET PO SCH (21:00)
[2016-11-06] MEDS: METOCLOPRAMIDE 5 MG/ML 2 ML VIAL IVP SCH ×2 (00:40→07:36)
[2016-11-06] MEDS: MORPHINE SULFATE 4 MG/ML SYRINGE IV PRN ×3 (00:49→10:35)
[2016-11-06 07:47] LABS: Basophils % (A) 0 %; CH 32.4; CHCM 33.8; Eosinophils % (A) 0 %; HCT 43.6 % (34.0-46.0); HDW 2.31; HGB 14.4 gm/dL (11.4-16.0); Luc # (Auto) 0.05; Luc % (Auto) 1; Lymphocytes # (A) 0.5 k/uL (1.0-4.8); Lymphocytes % (A) 9 %; MCH 31.7 pg (25.0-35.0); MCHC 32.9 g/dL (31.0-37.0); MCV 96.2 fL (80.0-100.0); Mean Platelet Volume 7.6; Monocytes % (A) 1 %; Neutrophils # (A) 5.2 k/uL (1.3-7.7); Neutrophils % (A) 90 %; RBC 4.53 m/uL (3.80-5.40); RDW 12.6 % (11.5-15.5); WBC 5.8 k/uL (3.8-10.6); WBC (Perox) 6.12
[2016-11-06 07:56] VITALS: BP 110/72; PULSE 89; RESP 12; TEMP 96.3
[2016-11-06 08:00] LABS: ALT 31 U/L (9-52); AST 18 U/L (14-36); Alkaline Phosphatase 52 U/L (38-126); Anion Gap 14 mmol/L; Blood Urea Nitrogen 11 mg/dL (7-17); Calcium 9.5 mg/dL (8.4-10.2); Carbon Dioxide 22 mmol/L (22-30); Chloride 104 mmol/L (98-107); Glucose 134 mg/dL (74-99); Non-African American GFR(MDRD) >60 (>60 ml/min/1.73 sqM); Potassium 4.4 mmol/L (3.5-5.1); Sodium 140 mmol/L (137-145); Total Bilirubin 0.7 mg/dL (0.2-1.3); Total Protein 7.7 g/dL (6.3-8.2)
[2016-11-06 09:08] LABS: Erythrocyte Sedimentation Rate 5 mm/hr (0-20)
[2016-11-06 09:21] LABS: C Reactive Protein <5.0 mg/L (<10.0)
[2016-11-06] MEDS ORDERED: CYANOCOBALAMIN 500 MCG TAB PO SCH (12:00)
--- NOTE | 2016-11-06 13:11 | P.PN ---
Subjective Principal diagnosis: Patient is a pleasant 26-year-old female who is being followed by the neurology service for gait disturbance and visual disturbance. 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 Patient reports changes in vision in her right eye. Patient states she noticed a severe headache on the right side shortly following visual changes. Patient had CT of the brain which was negative for any acute process. Patient had CT angiogram of neck and CT angios of the brain both of which were normal. Patient had normal pre-and postcontrast MRI of the brain as well. Patient's laboratory workup was unremarkable. Patient continues to have changes in her vision in her right eye as well as headache. Patient did receive IV Solu-Medrol, magnesium sulfate bolus, and Reglan which did not alleviate her symptoms. At the time of my evaluation, patient's resting comfortably in bed and appears to be in no acute distress. Objective - Vital Signs Vital signs: Vital Signs Temp 96.3 F L 11/06/16 07:00 Pulse 89 11/06/16 07:00 Resp 12 11/06/16 08:00 BP 110/72 11/06/16 07:00 Pulse Ox 97 11/06/16 07:00 Intake & Output 11/05/16 11/06/16 11/06/16 18:59 06:59 18:59 Intake Total 40 Balance 40 Intake: IV 40 Sodium Chloride 0.9% 1, 40 000 ml @ 20 mls/hr IV . Q24H [facility] Rx#:[id number] Other: Voiding Method Toilet Toilet # Voids 2 1 - Exam PHYSICAL EXAM: GENERAL APPEARANCE: Patient is a well-developed, female who appears to be in no acute distress. HEENT: Normocephalic, atraumatic, no facial asymmetry is seen. Neck is supple with no masses felt. CARDIOVASCULAR: Regular rate and rhythm. ABDOMEN: Nontender, nondistended. EXTREMITIES: Show no edema or clubbing. NEUROLOGICAL EXAM: Patient is awake, alert, and oriented 3. Speech and language are normal. Strength is full in all 4 extremities. Sensory exam to light touch is normal in all 4 extremities. No facial asymmetry is seen on cranial nerve testing. No tremors or seizure-like activity is seen. - Labs CBC & Chem 7: 11/06/16 06:37 11/06/16 06:37 Labs: Abnormal Lab Results - Last 24 Hours (Table) 11/06/16 11/06/16 Range/Units 06:37 06:37 Lymphocytes # 0.5 L (1.0-4.8) k/uL Glucose 134 H (74-99) mg/dL Assessment and Plan Plan: Impression: 1. Migraine with neurological symptoms 2. History of MTHFR 3. Visual disturbance 4. Gait disturbance Recommendations: It does appear the patient has migraine headache with neurological symptoms. As mentioned above, studies up to this point have all been within normal limits. As previously mentioned, patient did receive magnesium sulfate, Solu-Medrol, and Reglan to help alleviate the headache without success. Continue neurological checks. Due to ongoing headache and visual changes, I do recommend a stat ophthalmology consult. There is concern for pseudotumor cerebri. If unable to provide a stat ophthalmology consult, I recommend transferring the patient out. At this point, I understand patient is to be transferred out to [facility]. I recommend patient continue to follow with hematology in regards to MTHFR. I will continue to follow with you. Further recommendations to follow. I performed an examination of the patient and discussed the management with the NETBACKUP ENGINEER. I have reviewed the NETBACKUP ENGINEER notes and agree with the findings and plan of care.
--- NOTE | 2016-11-17 14:43 | P.DS ---
Providers Date of admission: 11/04/16 22:06 Expected date of discharge: 11/06/16 Attending physician: Saumya Leyva Consults: 11/04/16 22:20 Consult Physician Stat Consulting Provider: Karson Rosas Consult Reason/Comments: Visual disturbance, gait disturbance, headache Do you want consulting provider notified?: Yes 11/06/16 10:15 Consult Physician Stat Consulting Provider: Martha Robles Consult Reason/Comments: pseudotumor cerebri/blurred vision Do you want consulting provider notified?: Yes Primary care physician: Artem Odell [facility] Course: This is a 26 year old pleasant lady patient of Dr. Odell with known history of MP HFR, factor V Leyden, and 9 previous DVT PE since 2010, follows with Dr. Paulino not on any long-term anticoagulation, patient has had problems with imbalance on the day of admission, patient has generalized weakness from the neck down and right-sided headache. 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 In the emergency room angiography of the neck was performed which shows normal angiogram of the neck and brain without any abnormality or stenosis, patient was admitted with evaluation to include consultation from neurology, orthostatics will be obtained, vasculitis and acute thrombotic infarct is to be ruled out 11/05 2016 no evidence of dissection, MRA shows normal [place] of [place], there is slight filling defect of the left sigmoid sinus however these is not identified on contrast studies this could be artifactual, MR I of the brain shows normal PA and postcontrast studies. Patient was admitted Patient was transferred to [facility] on 11/06/2016. Discharge diagnoses: 1. 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 Known history of factor V laden with MTHFR mutation 3. Prior history of PE DVT last episode 2010 4. Right-sided headache, with multifactorial, patient does not have any history of migraines, hydration and sleep needs to be corrected, melatonin 6 mg was started, magnesium sulfate was given, with morphine when necessary Zofran when necessary morphine when necessary patient was started on Solu-Medrol by neurology 5. DVT prophylaxis with her high risk genetics, she'll be started on Lovenox and mechanical prophylaxis 6. GI prophylaxis IV Pepcid 7. 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 Rhiannon Alves nurse practitioner acting as scribe for signing physician. Patient Condition at Discharge: Stable Plan - Discharge Summary Discharge Medication List Butalb/APAP/Caff 50-325-40Mg [Fioricet 50-325-40] 1 each PO Q6HR PRN #40 tab [Rx] Ondansetron [Zofran] 4 mg PO Q8HR PRN #30 tab 11/08/16 [Rx] Follow up Appointment(s)/Referral(s): Artem Odell MD [Primary Care Provider] - 1-2 days Discharge Disposition: TRANSFER TO SHORT TERM HOSP
== END 2016-11-06 12:58 | disposition short-term general hospital (02) | DRG 103 ==
LOC: EC 20:10 → 5ONC 22:06
PROVIDERS: ADMIT Family Medicine; ATTEND Family Medicine
DX: G93.2 Benign intracranial hypertension (principal); G43.909 Migraine, unspecified, not intractable, without status migrainosus; R26.9 Unspecified abnormalities of gait and mobility; Z86.711 Personal history of pulmonary embolism; Z86.718 Personal history of other venous thrombosis and embolism
CPT/HCPCS: 36415; 70450; 70496; 70498; 70544; 70553; 71010; 80053; 81003; 81025; 82550; 82553; 82607; 83735; 84443; 84484; 85025; 85610; 85652; 85730; 86038; 86140; 93005; 96374; 96375; 99285

== ENCOUNTER 2016-11-06 21:10 | Observation (INO) | payer BC ==
[2016-11-06] MEDS ORDERED: MORPHINE SULFATE 4 MG/ML SYRINGE IV STA (21:43)
[2016-11-06] MEDS ORDERED: methylPREDNISolone SOD SUCCI 125 MG/2 ML VIAL IV STA (21:43)
[2016-11-06] MEDS ORDERED: METOCLOPRAMIDE 5 MG/ML 2 ML VIAL IVP STA (21:49)
--- NOTE | 2016-11-06 21:57 | ED ---
Headache HPI - General Chief Complaint: Weakness Stated Complaint: weakness Time Seen by Provider: 11/06/16 21:22 Mode of arrival: ambulatory Limitations: no limitations - History of Present Illness Initial Comments: This patient is a 26-year-old woman, coming to be evaluated for right-sided headache, right-sided visual changes, and a feeling of being off balance. All of the symptoms had started on . She states that she initially had a feeling like she was off balance and felt like her body was somewhat heavy. She went to work in the evening and then began experiencing the visual changes with the right eye. She states that things looked blurry. She describes seeing halos and floaters. about 15 or 20 minutes later she developed right sided headache from the temporal parietal back to the occipital area. She states that it is aching/burning pain. She was then seen in the emergency department here, she had CT and CT angio, and was admitted for further neurology workup. The patient subsequently had MRI/MRA performed, and all the studies were negative. She was seen by the neurologist. This morning she was transferred to [facility] in [place] to have an ophthalmology consult. Patient states that while she was there they stopped the medications for headache, and told her that they want to perform an LP. The patient did not have an ophthalmology consult. The patient then left and came back here to be seen. MD Complaint: headache -: days(s) Onset Description: gradual Location: right, temporal, occipital, other Severity: moderate Quality: aching, constant Consistency: constant Improves With: nothing Worsens With: none Context: occurred at rest - Related Data Previous Rx's Medication Instructions Recorded Butalb/APAP/Caff 50-325-40Mg 1 each PO Q6HR PRN #40 tab 11/08/16 [Fioricet 50-325-40] Ondansetron [Zofran] 4 mg PO Q8HR PRN #30 tab 11/08/16 Allergies Allergy/AdvReac Type Severity Reaction Status Date / Time clarithromycin [From Biaxin] Allergy Nausea & Verified 11/07/16 07:29 Vomiting Review of Systems ROS Statement: Those systems with pertinent positive or pertinent negative responses have been documented in the HPI. ROS Other: All systems not noted in ROS Statement are negative. Constitutional: Denies: fever, chills, weakness Eyes: Reports: vision change. Denies: eye pain, eye discharge ENT: Denies: hearing loss Respiratory: Denies: cough, dyspnea Cardiovascular: Denies: chest pain, palpitations, syncope Gastrointestinal: Denies: abdominal pain, vomiting, diarrhea Musculoskeletal: Denies: back pain Skin: Denies: rash Neurological: Reports: headache, abnormal gait Past Medical History Past Medical History: Pulmonary Embolus (PE) Additional Past Medical History / Comment(s): irregular heart rate, factor 5 MTHFR History of Any Multi-Drug Resistant Organisms: None Reported Past Surgical History: Tonsillectomy Additional Past Surgical History / Comment(s): left crapal tunnel release Past Psychological History: No Psychological Hx Reported Smoking Status: Never smoker Past Alcohol Use History: Occasional Past Drug Use History: None Reported - Past Family History Father Family Medical History: No Reported History Mother History Unknown: Yes (MT HFR and factor V) Sister(s) History Unknown: Yes (MT HFR) General Exam Limitations: no limitations General appearance: alert, in no apparent distress Head exam: Present: atraumatic, normocephalic Eye exam: Present: normal appearance, PERRL, EOMI. Absent: scleral icterus, conjunctival injection, nystagmus, periorbital swelling, periorbital tenderness ENT exam: Present: normal oropharynx, mucous membranes moist Neck exam: Present: normal inspection, full ROM Respiratory exam: Present: normal lung sounds bilaterally. Absent: respiratory distress, wheezes, rales, rhonchi, stridor Cardiovascular Exam: Present: regular rate, normal rhythm, normal heart sounds. Absent: systolic murmur, diastolic murmur, rubs, gallop GI/Abdominal exam: Present: soft. Absent: distended, tenderness, guarding, rebound, mass Extremities exam: Present: normal inspection, normal capillary refill. Absent: pedal edema, calf tenderness Back exam: Present: normal inspection. Absent: CVA tenderness (R), CVA tenderness (L) Skin exam: Present: warm, dry, intact, normal color. Absent: rash Course Vital Signs 11/06/16 11/06/16 11/07/16 21:13 23:03 00:26 Temperature 98.7 F 98.0 F Pulse Rate 87 79 65 Respiratory 18 18 18 Rate Blood Pressure 135/87 99/71 109/58 O2 Sat by Pulse 95 100 98 Oximetry 11/07/16 01:39 Temperature Pulse Rate 71 Respiratory 18 Rate Blood Pressure 113/57 O2 Sat by Pulse 95 Oximetry Medical Decision Making - Medical Decision Making Patient is 26-year-old woman with headache and visual change. She had been transferred to [facility], but had not been seen by ophthalmology there. She presents here again with continued headache and visual symptoms. Not able to obtain much symptomatic relief and she'll be admitted for further symptom control. - Lab Data Result diagrams: 11/06/16 22:00 11/06/16 22:00 Lab Results 11/06/16 11/06/16 Range/Units 22:00 22:00 WBC 16.2 H (3.8-10.6) k/uL RBC 4.43 (3.80-5.40) m/uL Hgb 14.3 (11.4-16.0) gm/dL Hct 40.9 (34.0-46.0) % MCV 92.5 (80.0-100.0) fL MCH 32.3 (25.0-35.0) pg MCHC 34.9 (31.0-37.0) g/dL RDW 12.1 (11.5-15.5) % Plt Count 284 (150-450) k/uL Neutrophils % 85 % Lymphocytes % 5 % Monocytes % 8 % Eosinophils % 0 % Basophils % 0 % Neutrophils # 13.8 H (1.3-7.7) k/uL Lymphocytes # 0.8 L (1.0-4.8) k/uL Monocytes # 1.3 H (0-1.0) k/uL Eosinophils # 0.0 (0-0.7) k/uL Basophils # 0.0 (0-0.2) k/uL ESR 5 (0-20) mm/hr Sodium 142 (137-145) mmol/L Potassium 4.3 (3.5-5.1) mmol/L Chloride 106 (98-107) mmol/L Carbon Dioxide 24 (22-30) mmol/L Anion Gap 12 mmol/L BUN 14 (7-17) mg/dL Creatinine 0.75 (0.52-1.04) mg/dL Est GFR (MDRD) Af Amer >60 (>60 ml/min/1.73 sqM) Est GFR (MDRD) Non-Af >60 (>60 ml/min/1.73 sqM) Glucose 108 H (74-99) mg/dL Calcium 10.0 (8.4-10.2) mg/dL Total Bilirubin 0.5 (0.2-1.3) mg/dL AST 15 (14-36) U/L ALT 29 (9-52) U/L Alkaline Phosphatase 49 (38-126) U/L Total Protein 8.0 (6.3-8.2) g/dL Albumin 4.6 (3.5-5.0) g/dL Disposition Clinical Impression: Headache, Visual disturbance Disposition: ADMITTED IP TO THIS [facility] Condition: Good
[2016-11-06 22:21] LABS: Basophils % (A) 0 %; CH 32.8; CHCM 35.6; Eosinophils % (A) 0 %; HCT 40.9 % (34.0-46.0); HDW 2.42; HGB 14.3 gm/dL (11.4-16.0); Luc # (Auto) 0.21; Luc % (Auto) 1; Lymphocytes # (A) 0.8 k/uL (1.0-4.8); Lymphocytes % (A) 5 %; MCH 32.3 pg (25.0-35.0); MCHC 34.9 g/dL (31.0-37.0); MCV 92.5 fL (80.0-100.0); Mean Platelet Volume 7.5; Monocytes # (A) 1.3 k/uL (0-1.0); Monocytes % (A) 8 %; Neutrophils # (A) 13.8 k/uL (1.3-7.7); Neutrophils % (A) 85 %; RBC 4.43 m/uL (3.80-5.40); RDW 12.1 % (11.5-15.5); WBC 16.2 k/uL (3.8-10.6); WBC (Perox) 16.57
[2016-11-06 22:32] LABS: ALT 29 U/L (9-52); AST 15 U/L (14-36); Alkaline Phosphatase 49 U/L (38-126); Anion Gap 12 mmol/L; Blood Urea Nitrogen 14 mg/dL (7-17); Carbon Dioxide 24 mmol/L (22-30); Chloride 106 mmol/L (98-107); Glucose 108 mg/dL (74-99); Non-African American GFR(MDRD) >60 (>60 ml/min/1.73 sqM); Potassium 4.3 mmol/L (3.5-5.1); Sodium 142 mmol/L (137-145); Total Bilirubin 0.5 mg/dL (0.2-1.3)
[2016-11-06] MEDS ORDERED: SUMAtriptan SUCCINATE 6 MG/0.5 ML VIAL SQ STA (23:24)
[2016-11-06 23:39] LABS: Erythrocyte Sedimentation Rate 5 mm/hr (0-20)
[2016-11-07] MEDS ORDERED: BUTALB/APAP/CAFF 50-325-40MG TAB PO STA ×2 (00:30→02:45)
[2016-11-07] MEDS ORDERED: diphenhydrAMINE 50 MG/ML 1 ML VIAL IVP STA (01:22)
[2016-11-07] MEDS ORDERED: METOCLOPRAMIDE 5 MG/ML 2 ML VIAL IVP STA (01:22)
[2016-11-07] MEDS ORDERED: DIHYDROERGOTAMINE MESYLATE 1 MG/ML 1 ML AMP IM STA (02:02)
[2016-11-07] MEDS ORDERED: KETOROLAC 30 MG/ML 1 ML VIAL IVP STA (02:28)
[2016-11-07] MEDS ORDERED: PROCHLORPERAZINE 10 MG TAB PO STA (02:30)
[2016-11-07] MEDS ORDERED: ONDANSETRON 4 MG ODT STARTER PACK 2 TAB BTL PO STA (02:45)
[2016-11-07] MEDS ORDERED: NALOXONE 0.4 MG/ML 1 ML VIAL IV PRN (02:53)
[2016-11-07] MEDS ORDERED: METOCLOPRAMIDE 5 MG/ML 2 ML VIAL IVP PRN (02:59)
[2016-11-07 04:00] VITALS: BMI 26.1
[2016-11-07] MEDS: BUTALB/APAP/CAFF 50-325-40MG TAB PO PRN ×5 (04:03→21:56)
[2016-11-07] MEDS: SODIUM CHLORIDE 0.9% 1,000 ML IV SCH ×3 (04:18→21:57)
--- NOTE | 2016-11-07 12:44 | PN ---
Patient returned from [facility] after she left AGAINST MEDICAL ADVICE yesterday, saying that they mistreated and it was not fair to be treated that way. 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 The patient said that her gait has become more stable, but still having some blurry vision in the right eye. Said that it is improved from before, but not quite completely, quite back to normal. PHYSICAL EXAMINATION: VITAL SIGNS: Reviewed and stable. LUNGS: Clear to auscultation bilaterally. HEART: Normal S1, S2. ABDOMEN: Soft, no tenderness, positive bowel sounds in all 4 quadrants. Gait stable. Vision: Patient reporting visual blurriness in her right eye. Imaging and labs: CBC, normal, Chem-7 slight elevation in her creatinine at 1.30. ASSESSMENT AND PLAN: 1. Blurry vision with gait instability, which resolved completely. The patient was having migraine attack. We will continue with Fioricet as needed, which showed improvement in the symptoms. I discussed with the patient that what she has done when she left AGAINST MEDICAL ADVICE at [facility] was mistake and as she was getting the right evaluation by doing lumbar puncture and doing as well eye examination. Patient currently is improving and I would like to monitor over the next 24 hours. Patient will feel safer if she stays in the hospital and get discharged in the morning to do her exam in the morning and I did not promise the patient that this happen tomorrow, but she insists to stay overnight and we will keep her overnight and continue with current migraine headache regimen. 2. Dehydration. We will continue with gentle hydration. 3. Obesity. Counseled regarding weight loss. 4. History of factor V deficiency and ( ) of in the past. Conservative management and follow up outpatient with primary care physician. 5. Discharge planning in the morning.
[2016-11-07] MEDS: ONDANSETRON 4 MG/2 ML VIAL IVP PRN ×2 (12:49→19:48)
[2016-11-07 22:11] VITALS: TEMP 98.1
[2016-11-08] MEDS: ONDANSETRON 4 MG/2 ML VIAL IVP PRN (06:18)
[2016-11-08] MEDS: BUTALB/APAP/CAFF 50-325-40MG TAB PO PRN ×2 (06:22→10:53)
[2016-11-08] MEDS: SODIUM CHLORIDE 0.9% 1,000 ML IV SCH (07:54)
[2016-11-08 08:55] VITALS: BP 120/83; PULSE 79; RESP 18
--- NOTE | 2016-11-17 14:44 | P.DS ---
Providers Date of admission: 11/07/16 02:58 Expected date of discharge: 11/08/16 Attending physician: Nayla Ellison Primary care physician: Artem Odell [facility] Course: This is a 26 year old female patient of Dr. Odell with known history of MTHFR, factor V Leiden deficiency and 9 previous DVT PE since 2010, follows with Dr. Lala, not on any long-term anticoagulation. Patient has had problems with imbalance on the day of initial admission, 11/04, patient has generalized weakness from the neck down and right-sided headache. 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 Patient has no isolated motor deficits. She has symptoms of almost passing out from a bending position. She was subsequently seen emergency room with evaluation as her risk of thrombotic disease is higher from her mutation. CAT scan of the brain was negative for any acute process. CT angiogram of the neck and CT angios of the brain both weren't normal. Patient had normal pre-and post contract MRI of the brain as well that was normal. Laboratory workup was unremarkable she received IV Solu-Medrol, magnesium sulfate and Reglan which did not relieve her symptoms. Patient was followed during that admission neurology with recommendations for ophthalmology consult and patient was transferred [facility]. Once at [facility], patient states that they stopped her medications and a ophthalmology consult was requested and they also recommended an LP. Patient left there AMA and came to [facility] emergency center to be readmitted. Patient's gait has become more stable but still having some blurry vision in the right eye but improved from previous. Not back to normal at this point. Patient was placed on Fioricet for migraine attack. 11/08: Patient states that she continues to have a headache but improved with Fioricet. She does have some nausea as well. She is walking a little bit. She is nauseated but can keep food down when she eats. Patient will be discharged home today in stable condition and will be given prescriptions for Fioricet and Zofran. Patient has been instructed to follow-up with Dr. Odell within the week and also follow up with Dr. Rosas regarding headache. Discharge diagnoses: 1. Migraine headache 2. Acute ataxia with impaired gait and balance, generalized body weakness, resolved 3. Dehydration 4. Obesity 5. History of factor V deficiency with DVT and PE in the past Discharge plan: Return home Impression and plan of care have been directed as dictated by the signing physician. Rhiannon Alves nurse practitioner acting as scribe for signing physician. Patient Condition at Discharge: Good Plan - Discharge Summary New Discharge Prescriptions: Butalb/APAP/Caff 50-325-40Mg [Fioricet 50-325-40] 1 each PO Q6HR PRN #40 tab PRN Reason: Headache Ondansetron [Zofran] 4 mg PO Q8HR PRN #30 tab PRN Reason: Nausea Discharge Medication List Butalb/APAP/Caff 50-325-40Mg [Fioricet 50-325-40] 1 each PO Q6HR PRN #40 tab [Rx] Ondansetron [Zofran] 4 mg PO Q8HR PRN #30 tab 11/08/16 [Rx] Follow up Appointment(s)/Referral(s): Artem Odell MD [Primary Care Provider] - 11/11/16 11:15 am Karson Rosas MD [STAFF PHYSICIAN] - 1 Week (Office will call you with appointment.) Patient Instructions/Handouts: Acute Headache (DC) Discharge Disposition: HOME SELF-CARE
== END 2016-11-08 12:45 | disposition home or self-care (01) ==
LOC: EC 21:10 → 4MS4W 11-07 02:58 → 5ONC 11-07 03:21
PROVIDERS: ADMIT Internal Medicine; ATTEND Internal Medicine
DX: G43.909 Migraine, unspecified, not intractable, without status migrainosus (principal); H53.19 Other subjective visual disturbances; Z88.3 Allergy status to other anti-infective agents; R26.0 Ataxic gait; Z86.711 Personal history of pulmonary embolism; E72.12 Methylenetetrahydrofolate reductase deficiency; D68.2 Hereditary deficiency of other clotting factors; E86.0 Dehydration; Z86.718 Personal history of other venous thrombosis and embolism
CPT/HCPCS: 99285 ×2; 96374 ×2; 96375 ×4; 96376 ×2; 36415; 80053; 85652; 85025; 96372; G0378 ×2; J3030; J2270; J1200; J2765 ×3; J2930; J2405 ×2

== ENCOUNTER 2017-12-09 13:09 | Emergency (ER) | payer BC ==
[2017-12-09 13:17] VITALS: RESP 18
--- NOTE | 2017-12-09 13:55 | ED ---
General Adult HPI - General Chief complaint: Extremity Problem,Nontraumatic Stated complaint: poss clot lt leg Time Seen by Provider: 12/09/17 13:18 Source: patient, RN notes reviewed, old records reviewed Mode of arrival: ambulatory Limitations: no limitations - History of Present Illness Initial comments: This is a 27-year-old female the ER for evaluation. This patient does say for evaluation regards to possible DVT. Patient has history of and CHF are, factor V. Patient has history of bilateral PE. Patient denies chest pain or shortness of breath. Complaining of left leg pain. Patient also admits to right wrist pain. Patient admits to recent does admit to recent long flight - Related Data Home Medications Medication Instructions Recorded Confirmed Escitalopram Oxalate [Lexapro] 20 mg PO DAILY 12/09/17 12/09/17 Previous Rx's Medication Instructions Recorded Apixaban [Eliquis] 5 mg PO BID #60 tab 12/09/17 Apixaban [Eliquis] 10 mg PO BID #28 tablet 12/09/17 Allergies Allergy/AdvReac Type Severity Reaction Status Date / Time clarithromycin [From Biaxin] Allergy Nausea & Verified 12/09/17 13:50 Vomiting Review of Systems ROS Statement: Those systems with pertinent positive or pertinent negative responses have been documented in the HPI. ROS Other: All systems not noted in ROS Statement are negative. Past Medical History Past Medical History: Pulmonary Embolus (PE) Additional Past Medical History / Comment(s): irregular heart rate, factor 5 MTHFR History of Any Multi-Drug Resistant Organisms: None Reported Past Surgical History: Adenoidectomy, Tonsillectomy Additional Past Surgical History / Comment(s): left carpal tunnel release Past Anesthesia/Blood Transfusion Reactions: No Reported Reaction Past Psychological History: No Psychological Hx Reported Smoking Status: Never smoker Past Alcohol Use History: Occasional Past Drug Use History: None Reported - Past Family History Father Family Medical History: No Reported History Mother History Unknown: Yes (MT HFR and factor V) Additional Family Medical History / Comment(s): factor 5 MTHFR Sister(s) History Unknown: Yes (MT HFR) Additional Family Medical History / Comment(s): blood clotting disorder that runs in the family. General Exam Limitations: no limitations General appearance: alert, in no apparent distress Head exam: Present: atraumatic, normocephalic, normal inspection Eye exam: Present: normal appearance, PERRL, EOMI. Absent: scleral icterus, conjunctival injection, periorbital swelling ENT exam: Present: normal exam, mucous membranes moist Neck exam: Present: normal inspection. Absent: tenderness, meningismus, lymphadenopathy Respiratory exam: Present: normal lung sounds bilaterally. Absent: respiratory distress, wheezes, rales, rhonchi, stridor Cardiovascular Exam: Present: regular rate, normal rhythm, normal heart sounds. Absent: systolic murmur, diastolic murmur, rubs, gallop, clicks GI/Abdominal exam: Present: soft, normal bowel sounds. Absent: distended, tenderness, guarding, rebound, rigid Extremities exam: Present: normal inspection, full ROM, normal capillary refill , calf tenderness, other (Left lower extremity edema and calf tenderness). Absent: tenderness, pedal edema, joint swelling Back exam: Present: normal inspection Neurological exam: Present: alert, oriented X3, CN II-XII intact Psychiatric exam: Present: normal affect, normal mood Skin exam: Present: warm, dry, intact, normal color. Absent: rash Course Vital Signs 12/09/17 13:14 Temperature 97.7 F Pulse Rate 89 Respiratory 18 Rate Blood Pressure 133/81 O2 Sat by Pulse 100 Oximetry - Reevaluation(s) Reevaluation #1: 12/09/17 15:[address] Lane regarding treatment options, recommendations given Medical Decision Making - Medical Decision Making 27 female the ER for evaluation of leg pain wrist pain. Positive superficial thrombosis, we'll start on anticoagulation follow-up with Dr. Lane/Dai in 1 month - Radiology Data Radiology results: report reviewed (Ultrasound unresponsive from both a superficial, ultrasound left leg positive for saphenous vein thrombosis to the CFv), image reviewed Disposition Clinical Impression: Superficial thrombosis of left lower extremity Narrative: Right Wrist Superficial Thrombus Disposition: HOME SELF-CARE Condition: Good Instructions: Superficial Thrombophlebitis (ED), Deep Venous Thrombosis (ED) Prescriptions: Apixaban [Eliquis] 5 mg PO BID #60 tab Apixaban [Eliquis] 10 mg PO BID #28 tablet Is patient prescribed a controlled substance at d/c from ED?: No Referrals: Artem Odell MD [Primary Care Provider] - 1-2 days Gabe Lala MD [STAFF PHYSICIAN] - 1-2 days
--- NOTE | 2017-12-09 15:25 | US ---
EXAMINATION TYPE: US venous doppler duplex LE LT DATE OF EXAM: 12/09/2017 3:00 PM COMPARISON: NONE CLINICAL HISTORY: Pain. Pain left leg for 1 week. Edema left leg noticed this morning. History of PE. Factor 5 disorder SIDE PERFORMED: left TECHNIQUE: The lower extremity deep venous system is examined utilizing real time linear array sonog eryn with graded compression, doppler sonography and color-flow sonography. VESSELS IMAGED: External Iliac Vein (EIV) Common Femoral Vein Deep Femoral Vein Greater Saphenous Vein * Femoral Vein Popliteal Vein Small Saphenous Vein * Proximal Calf Veins (* superficial vessels) Grayscale, color doppler, spectral doppler imaging performed of the deep veins of the left lower extr emity. There is normal flow, compressibility, vascular waveforms. Left Leg: No evidence of acute DVT as visualized. Thrombus noted within left greater saphenous vein at CFV junction extending down to lower thigh IMPRESSION: Superficial thrombus within the left greater saphenous vein. No sonographic evidence of deep venous thrombosis within the left lower extremity.
--- NOTE | 2017-12-09 15:29 | US ---
EXAMINATION TYPE: US venous doppler duplex UE RT DATE OF EXAM: 12/09/2017 COMPARISON: NONE CLINICAL HISTORY: Pain. Hard lump right wrist for 4 days SIDE PERFORMED: right Grayscale, color doppler, spectral doppler imaging performed of the deep veins of the upper extremiti es. There is normal flow, com superficial venous thrombosis compressibility and vascular waveforms. Right Arm: No evidence of DVT as visualized. Superficial thrombus noted within area of lump at outer wrist IMPRESSION: 1. No sonographic evidence of deep venous thrombosis within the right upper extremity. 2. Superficial venous thrombosis at the site of palpable abnormality within the right wrist.
[2017-12-09] MEDS ORDERED: APIXABAN 5 MG TAB PO STA (15:49)
[2017-12-09 16:03] VITALS: BP 126/75; PULSE 88; TEMP 98.5
== END 2017-12-09 16:10 | disposition home or self-care (01) ==
LOC: EC 13:09
DX: I82.402 Acute embolism and thrombosis of unspecified deep veins of left lower extremity (principal); M25.531 Pain in right wrist; Z86.711 Personal history of pulmonary embolism; Z79.899 Other long term (current) drug therapy; Z88.1 Allergy status to other antibiotic agents
CPT/HCPCS: 99284

== ENCOUNTER → 2018-03-06 | Outpatient (CLI) | payer BC ==
--- NOTE | 2018-03-06 16:11 | US ---
EXAMINATION TYPE: US venous doppler duplex LE LT DATE OF EXAM: 03/06/2018 3:53 PM COMPARISON: US CLINICAL HISTORY: Calf Pain M79.669. Medial left thigh to knee pain; prior SVT left leg; on blood thi nner; Factor V SIDE PERFORMED: Left TECHNIQUE: The lower extremity deep venous system is examined utilizing real time linear array sonog eryn with graded compression, doppler sonography and color-flow sonography. VESSELS IMAGED: Common Femoral Vein Deep Femoral Vein Greater Saphenous Vein * Femoral Vein Popliteal Vein Small Saphenous Vein * Proximal Calf Veins (* superficial vessels) IMPRESSION: Left Leg: Negative for DVT. 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 Tech findings called to message machine at Dr. Paulino's [facility].
== END | disposition home or self-care (01) ==
LOC: RADUSWWP 15:24
PROVIDERS: ATTEND Orthopaedic Surgery Sports Medicine
DX: I80.02 Phlebitis and thrombophlebitis of superficial vessels of left lower extremity (principal); M79.89 Other specified soft tissue disorders

== ENCOUNTER → 2019-04-13 | Outpatient (CLI) | payer BC ==
[2019-04-13 17:14] LABS: Basophils # (A) 0.1 k/uL (0-0.2); Basophils % (A) 1 %; Eosinophils # (A) 0.1 k/uL (0-0.7); Eosinophils % (A) 1 %; HCT 42.2 % (34.0-46.0); HGB 14.7 gm/dL (11.4-16.0); Lymphocytes % (A) 29 %; MCV 91.6 fL (80.0-100.0); Mean Platelet Volume 7.6; Monocytes # (A) 0.4 k/uL (0-1.0); Monocytes % (A) 6 %; Neutrophils # (A) 4.1 k/uL (1.3-7.7); Neutrophils % (A) 60 %; Platelet Count 319 k/uL (150-450); RBC 4.61 m/uL (3.80-5.40); RDW 11.8 % (11.5-15.5); WBC 6.7 k/uL (3.8-10.6)
--- NOTE | 2019-04-13 17:25 | XR ---
EXAMINATION TYPE: XR abdomen acute w cxr DATE OF EXAM: 04/13/2019 COMPARISON: Chest x-ray 11/04/2016 HISTORY: TECHNIQUE: Chest x-ray with supine and upright abdomen FINDINGS: Heart and mediastinum are normal. Lungs are clear. Diaphragm is normal. Bowel gas pattern is normal. There is no sign of intestinal obstruction or pneumoperitoneum. Fecal pa ttern is normal. There are no pathologic calcifications over the kidneys. IMPRESSION: Nonacute abdomen. Normal chest. No change.
[2019-04-13 17:28] LABS: ALT 35 U/L (9-52); AST 25 U/L (14-36); African American GFR (CKD) >90 (>60 ml/min/1.73 sqM); Albumin 4.8 g/dL (3.5-5.0); Albumin/Globulin Ratio 1.5; Alkaline Phosphatase 63 U/L (38-126); Amylase 88 U/L (30-110); Anion Gap 12 mmol/L; Blood Urea Nitrogen 11 mg/dL (7-17); Calcium 9.8 mg/dL (8.4-10.2); Carbon Dioxide 26 mmol/L (22-30); Chloride 102 mmol/L (98-107); Globulin 3.2 g/dL; Glucose 94 mg/dL (74-99); LDH 419 U/L (313-618); Potassium 4.1 mmol/L (3.5-5.1); Sodium 140 mmol/L (137-145); Total Bilirubin 0.3 mg/dL (0.2-1.3)
== END | disposition home or self-care (01) ==
LOC: LABWHC1 16:47
PROVIDERS: ATTEND Family Medicine
DX: R19.7 Diarrhea, unspecified (principal)
CPT/HCPCS: 36415; 74022; 80053; 82150; 83615; 83690; 84443; 85025; 85379

== ENCOUNTER → 2019-04-16 | Outpatient (CLI) | payer BC ==
--- NOTE | 2019-04-16 11:16 | CT ---
EXAMINATION TYPE: CT abdomen pelvis w con DATE OF EXAM: 04/16/2019 COMPARISON: None HISTORY: 28 year-old female left lower quadrant pain with vomiting TECHNIQUE: Contiguous axial scanning of the abdomen and pelvis following administration of 100 ml Iso maribel 300 IV contrast. Delayed images through the kidneys and coronal/sagittal reconstructions perform ed. CT DLP: 651.2 mGycm Automated exposure control for dose reduction was used. FINDINGS: Heart normal size without pericardial effusion. Prominent dependent atelectasis in the posterior lung bases. No pleural effusion. No focal liver lesion or biliary ductal dilatation. Portal venous system is patent. Gallbladder, adrenal glands, kidneys, spleen, and pancreas appear within normal limits. No dilated small bowel, free fluid, or free air. Normal appendix is visualized, for example, axial image 50 and coronal image 36. 2 contrast progressed to the upper ascending colon. There is moderate overall stone burden with mildl y redundant sigmoid colon. No pericolonic inflammatory change. No mesenteric or retroperitoneal lymphadenopathy. Uterus is anteverted. Follicular changes of the left ovary. There is a 2.1 cm dominant follicle or fu nctional cyst within the right ovary. No abnormal fluid collection in the pelvis or pelvic lymphadeno bigg seen. Bones: No osseous destructive process. IMPRESSION: 1. FOLLICULAR CHANGE IN BOTH OVARIES WITH A 2.1 CM DOMINANT FOLLICLE OR FUNCTIONAL CYST IN THE RIGHT OVARY. 2. MODERATE STOOL BURDEN WITH A MILDLY REDUNDANT SIGMOID COLON. 3. OTHERWISE, NO ACUTE INFLAMMATORY PROCESS IDENTIFIED IN THE ABDOMEN OR PELVIS TO EXPLAIN THE PATIEN T'S SYMPTOMS.
== END | disposition home or self-care (01) ==
LOC: RADCTMAIN 08:23
PROVIDERS: ATTEND Family Medicine
DX: R19.5 Other fecal abnormalities (principal)
CPT/HCPCS: 74177; Q9967

== ENCOUNTER → 2020-08-21 | Outpatient (CLI) | payer BC ==
--- NOTE | 2020-08-21 13:18 | US ---
EXAMINATION TYPE: US venous doppler duplex LE LT DATE OF EXAM: 08/21/2020 11:16 AM COMPARISON: US 2018 CLINICAL HISTORY: 30-year-old female LLE; pain in left lower limb; hx of ember PE. Left calf pain, hist ory of DVT and SVT, patient is 11 weeks , on blood thinners. SIDE PERFORMED: Left TECHNIQUE: The lower extremity deep venous system is examined utilizing real time linear array sonog eryn with graded compression, doppler sonography and color-flow sonography. FINDINGS: VESSELS IMAGED: Common Femoral Vein Deep Femoral Vein Greater Saphenous Vein * Femoral Vein Popliteal Vein Small Saphenous Vein * Proximal Calf Veins (* superficial vessels) Left Leg: Appears negative for DVT IMPRESSION: No evidence for DVT within the left lower extremity imaged from the groin to the upper calf.
== END | disposition home or self-care (01) ==
LOC: RADUSWWP 10:42
PROVIDERS: ATTEND Obstetrics & Gynecology
DX: M79.662 Pain in left lower leg (principal); Z86.711 Personal history of pulmonary embolism; Z33.1 Pregnant state, incidental

== ENCOUNTER 2020-10-27 14:01 | Emergency (ER) | payer BC ==
[2020-10-27 14:07] VITALS: RESP 18
--- NOTE | 2020-10-27 14:15 | ED ---
SOB HPI - General Source: patient, RN notes reviewed Mode of arrival: ambulatory Limitations: no limitations <Harjinder Mccain - Last Filed: 10/27/20 14:11> <Jaclyn Anders - Last Filed: 10/27/20 19:28> - General Chief Complaint: Shortness of Breath Stated Complaint: Sent by pcpBakari PE Time Seen by Provider: 10/27/20 14:06 - History of Present Illness Initial Comments: Abigail is a 30-year-old female with a history of factor V Leiden and MTH afar as well as a history of pulmonary embolism in the past. Patient was previously on Eliquis the medication was discontinued, she found out in July she is and was started on Lovenox 80 mg daily. Patient reports that over the past week she has had a pleuritic pain in her right posterior chest. Pain is associated with mild shortness of breath, patient reports that her shortness of breath is not as significant as it was with previous pulmonary embolism but at time of diagnoses she had multiple emboli in all lobes of the lungs. She was evaluated by her veterinary science teacher today who advised her to come to the emergency department for workup for possible pulmonary embolism. She denies any fevers, chills, cough. Pain is pleuritic in nature worse with deep breaths or movement. Pain is located in the right posterior chest. (Jaclyn Anders) - Related Data Home Medications Medication Instructions Recorded Confirmed Aspirin EC [Ecotrin Low Dose] 81 mg PO HS 10/27/20 10/27/20 Calcium Carbonate/Vitamin D3 1 tab PO HS 10/27/20 10/27/20 [Calcium 500 mg-Vit D3 5 mcg (200 Unit)] Enoxaparin Sodium 80 mg SQ HS 10/27/20 10/27/20 Allergies Allergy/AdvReac Type Severity Reaction Status Date / Time clarithromycin [From Biaxin] Allergy Nausea & Verified 10/27/20 18:55 Vomiting Review of Systems ROS Other: All systems not noted in ROS Statement are negative. <Harjinder Mccain - Last Filed: 10/27/20 14:11> ROS Other: All systems not noted in ROS Statement are negative. <Jaclyn Anders - Last Filed: 10/27/20 19:28> ROS Statement: Those systems with pertinent positive or pertinent negative responses have been documented in the HPI. Past Medical History Past Medical History: Pulmonary Embolus (PE) Additional Past Medical History / Comment(s): irregular heart rate, factor 5 MTHFR History of Any Multi-Drug Resistant Organisms: None Reported Past Surgical History: Adenoidectomy, Tonsillectomy Additional Past Surgical History / Comment(s): left carpal tunnel release Past Anesthesia/Blood Transfusion Reactions: No Reported Reaction Past Psychological History: No Psychological Hx Reported Smoking Status: Never smoker Past Alcohol Use History: Occasional Past Drug Use History: None Reported - Past Family History Father Family Medical History: No Reported History Mother History Unknown: Yes (MT HFR and factor V) Additional Family Medical History / Comment(s): factor 5 MTHFR Sister(s) History Unknown: Yes (MT HFR) Additional Family Medical History / Comment(s): blood clotting disorder that runs in the family. <Harjinder Mccain - Last Filed: 10/27/20 14:11> General Exam Limitations: no limitations <Harjinder Mccain - Last Filed: 10/27/20 14:11> <Jaclyn Anders - Last Filed: 10/27/20 19:28> - General Exam Comments Initial Comments: 30-year-old female presents emergency Department with chief complaint of possible PE. Patient was sent in by Dr. Duong her WRECKING SUPERVISOR. Patient is 20 weeks A0. Patient states that she does have factor 5 and MTFHR and which she is on Lovenox injections twice daily. Patient states that she's been having right posterior chest pain. Patient states that she has had some shortness of breath but is not a usual. She does have a history of clots. (Harjinder Mccain) Physical Exam GENERAL: Patient is well-developed and well-nourished. Patient is nontoxic and well-hydrated and is in no distress. HENT: Normocephalic, Atraumatic. EYES: PERRL, EOMI PULMONARY: Unlabored respirations. CARDIOVASCULAR: RRR Warm and well perfused extremities ABDOMEN: Non-distended SKIN: No rashes or bruising : Deferred NEUROLOGIC: Alert and oriented Normal speech Normal gait MUSCULOSKELETAL: Moving all extremities with no apparent injury PSYCHIATRIC: No SI/HI (Jaclyn Anders) Course Vital Signs 10/27/20 14:03 Temperature 98 F Pulse Rate 89 Respiratory 18 Rate Blood Pressure 129/88 O2 Sat by Pulse 99 Oximetry Medical Decision Making - Lab Data Result diagrams: 10/27/20 14:14 10/27/20 14:14 <Jaclyn Anders - Last Filed: 10/27/20 19:28> - Medical Decision Making The patient was seen and evaluated, history is obtained from the patient 30-year-old female very high risk for pulmonary embolism she is currently on Lovenox YEARS algorithm recommends CT scan due to high risk and elevated D-dimer If patient is positive for PE we will double her dose of Lovenox, because diagnosis will change her management I would recommend the patient undergo computed tomography scan regardless of status. Risks and benefits of computed tomography scan were discussed with the patient. She is agreeable. (Jaclyn Anders) - Lab Data Lab Results 10/27/20 10/27/20 10/27/20 Range/Units 14:14 14:14 14:14 WBC 5.8 (3.8-10.6) k/uL RBC 3.97 (3.80-5.40) m/uL Hgb 13.2 (11.4-16.0) gm/dL Hct 36.9 (34.0-46.0) % MCV 92.9 (80.0-100.0) fL MCH 33.4 (25.0-35.0) pg MCHC 35.9 (31.0-37.0) g/dL RDW 12.5 (11.5-15.5) % Plt Count 225 (150-450) k/uL MPV 8.2 Neutrophils % 63 % Lymphocytes % 27 % Monocytes % 7 % Eosinophils % 1 % Basophils % 1 % Neutrophils # 3.6 (1.3-7.7) k/uL Lymphocytes # 1.6 (1.0-4.8) k/uL Monocytes # 0.4 (0-1.0) k/uL Eosinophils # 0.1 (0-0.7) k/uL Basophils # 0.0 (0-0.2) k/uL PT 9.4 (9.0-12.0) sec INR 0.9 (<1.2) APTT 24.8 (22.0-30.0) sec D-Dimer 1.02 H (<0.60) mg/L FEU Sodium 134 L (137-145) mmol/L Potassium 3.9 (3.5-5.1) mmol/L Chloride 104 (98-107) mmol/L Carbon Dioxide 21 L (22-30) mmol/L Anion Gap 9 mmol/L BUN 8 (7-17) mg/dL Creatinine 0.54 (0.52-1.04) mg/dL Est GFR (CKD-EPI)AfAm >90 (>60 ml/min/1.73 sqM) Est GFR (CKD-EPI)NonAf >90 (>60 ml/min/1.73 sqM) Glucose 120 H (74-99) mg/dL Calcium 9.0 (8.4-10.2) mg/dL Disposition <Harjinder Mccain - Last Filed: 10/27/20 14:11> Is patient prescribed a controlled substance at d/c from ED?: No <Jaclyn Anders - Last Filed: 10/27/20 19:28> Clinical Impression: Pleuritic chest pain Disposition: HOME SELF-CARE Condition: Stable Additional Instructions: Your CT scan was negative for pulmonary embolism, continue your lovenox as prescribed. Take Tylenol for pain. Stay hydrated. Follow up with Dr Duong Return to the ER for any worsening of pain or development of new or concerning symptoms. Referrals: Astrid Howard MD [Primary Care Provider] - 1-2 days
[2020-10-27 14:25] LABS: Basophils % (A) 1 %; Eosinophils # (A) 0.1 k/uL (0-0.7); Eosinophils % (A) 1 %; HCT 36.9 % (34.0-46.0); HGB 13.2 gm/dL (11.4-16.0); Lymphocytes # (A) 1.6 k/uL (1.0-4.8); Lymphocytes % (A) 27 %; MCH 33.4 pg (25.0-35.0); MCHC 35.9 g/dL (31.0-37.0); MCV 92.9 fL (80.0-100.0); Mean Platelet Volume 8.2; Monocytes # (A) 0.4 k/uL (0-1.0); Monocytes % (A) 7 %; Neutrophils # (A) 3.6 k/uL (1.3-7.7); Neutrophils % (A) 63 %; Platelet Count 225 k/uL (150-450); RBC 3.97 m/uL (3.80-5.40); RDW 12.5 % (11.5-15.5); WBC 5.8 k/uL (3.8-10.6)
[2020-10-27 14:34] LABS: African American GFR (CKD) >90 (>60 ml/min/1.73 sqM); Anion Gap 9 mmol/L; Blood Urea Nitrogen 8 mg/dL (7-17); Carbon Dioxide 21 mmol/L (22-30); Chloride 104 mmol/L (98-107); Glucose 120 mg/dL (74-99); Non-African American GFR(CKD) >90 (>60 ml/min/1.73 sqM); Potassium 3.9 mmol/L (3.5-5.1); Sodium 134 mmol/L (137-145)
[2020-10-27 14:41] LABS: INR 0.9 (<1.2); Partial Thromboplastin Time 24.8 sec (22.0-30.0); Prothrombin Time 9.4 sec (9.0-12.0)
[2020-10-27 14:46] LABS: D-Dimer 1.02 mg/L FEU (<0.60)
--- NOTE | 2020-10-27 18:57 | CT ---
EXAMINATION TYPE: CT chest angio for PE DATE OF EXAM: 10/27/2020 COMPARISON: None available. HISTORY: SOB, Elevated d-dimer, hx pe. Hx Factor 5. CT DLP: 238.1 mGycm Automated exposure control for dose reduction was used. CONTRAST: CT Chest for pulmonary embolism performed with with IV Contrast, patient injected with 100 mL of Isov ue 370. FINDINGS: LUNGS: There is mild to moderate dependent opacities in the lower lobes. No focal consolidation or link spicious pulmonary nodules. There is no pleural effusion or pneumothorax seen. The tracheobronchia l tree is patent. MEDIASTINUM: There is satisfactory enhancement of the pulmonary artery and its branches, there is no CT evidence for pulmonary embolism. There are no greater than 1 cm hilar or mediastinal lymph nodes. No pericardial effusion is seen. Borderline cardiomegaly. OTHER: Hepatosplenomegaly seen. IMPRESSION: No acute PE. Dependent opacities, suggestive of atelectasis. Hepatosplenomegaly.
[2020-10-27 20:38] VITALS: BP 125/80; PULSE 83; TEMP 98.4
== END 2020-10-27 20:38 | disposition home or self-care (01) ==
LOC: EC 14:01
DX: O99.512 Diseases of the respiratory system complicating pregnancy, second trimester (principal); R07.81 Pleurodynia; R06.02 Shortness of breath; O99.112 Other diseases of the blood and blood-forming organs and certain disorders involving the immune mechanism complicating pregnancy, second trimester; D68.51 Activated protein C resistance; R79.89 Other specified abnormal findings of blood chemistry; Z86.711 Personal history of pulmonary embolism; Z79.01 Long term (current) use of anticoagulants; Z88.1 Allergy status to other antibiotic agents; Z79.82 Long term (current) use of aspirin; Z79.899 Other long term (current) drug therapy; Z3A.20 20 weeks gestation of pregnancy
CPT/HCPCS: 36415; 85379; 80048; 85025; 85610; 85730; 71275; 99285; Q9967

== ENCOUNTER 2021-02-24 06:00 | Inpatient (IN) | payer BC ==
[2021-02-24] MEDS ORDERED: LIDOCAINE 0.5% (PF) 5 MG/ML (50 ML SDV) SQ PRN (06:30)
[2021-02-24] MEDS ORDERED: CARBOPROST TROMETHAMINE 250 MCG/ML 1 ML AMP IM PRN (06:30)
[2021-02-24] MEDS ORDERED: OXYTOCIN 10 UNIT/ML 1 ML VIAL IM PRN (06:30)
[2021-02-24] MEDS ORDERED: TERBUTALINE 1 MG/ML VIAL SQ PRN (06:30)
[2021-02-24] MEDS ORDERED: METHYLERGONOVINE 0.2 MG/ML 1 ML AMP IM PRN (06:30)
[2021-02-24 06:47] LABS: Basophils % (A) 0 %; Eosinophils # (A) 0.2 k/uL (0-0.7); Eosinophils % (A) 1 %; HCT 36.1 % (34.0-46.0); HGB 12.5 gm/dL (11.4-16.0); Lymphocytes # (A) 2.4 k/uL (1.0-4.8); Lymphocytes % (A) 23 %; MCH 31.4 pg (25.0-35.0); MCHC 34.5 g/dL (31.0-37.0); Mean Platelet Volume 10.7; Monocytes # (A) 0.7 k/uL (0-1.0); Monocytes % (A) 7 %; Neutrophils # (A) 6.9 k/uL (1.3-7.7); Neutrophils % (A) 66 %; Platelet Count 227 k/uL (150-450); RBC 3.97 m/uL (3.80-5.40); RDW 12.4 % (11.5-15.5); WBC 10.5 k/uL (3.8-10.6)
[2021-02-24] MEDS: LACTATED RINGERS 1,000 ML IV SCH ×3 (06:52→21:46)
[2021-02-24] MEDS: OXYTOCIN 30 UNITS/500 ML NS 30 UNIT in SALINE 1 500ML.BAG IV SCH ×2 (06:58→21:47)
--- NOTE | 2021-02-24 08:12 | P.HPOB ---
History of Present Illness H&P Date: 02/24/21 Chief Complaint: Here for elective induction of labor This is a 30-year-old white female 1 para 0 EDC 03/11/2021 at 37-3/7 weeks' gestation. Patient presents today for induction of labor per recommendation of maternal medicine, history of bilateral PE on Lovenox daily. NSTs the been reactive daily. Fetus is been active throughout the . Lovenox was held yesterday, last received on Tuesday. Past medical history is significant for factor V Leiden deficiency, MTHFR gene mutation, bilateral pulmonary embolus on the NuvaRing in 2010. Past surgical history carpal tunnel release, some surgery of the left arm in 2019, tonsillectomy and adenoidectomy. Current medications Lovenox 100 mg subcutaneously daily, baby aspirin daily, vitamin daily. ALLERGIES include Biaxin to which reports GI upset. Family history is significant for breast cancer, colon cancer. Social history patient is employed, she is single, father of the baby is present and involved. She has never been a tobacco smoker and denies alcohol or drug use. history blood type is B+, rubella status immune. VDRL testing, hepatitis B surface antigen, HIV testing, urine culture, gonorrhea and chlamydia cultures, group B strep cultures all negative. One-hour Glucola 174, 3 hour GTT within normal limits. On exam patient is 5 foot 6 inches, 185 pounds, blood pressure 118/92 on admission, pulse 101. General physical exam is within normal limits. Extremiti es are negative bilaterally. Chest is clear in all gould. Cervix is 2-3 cm dilated, soft, 60-70% effaced, -2 station, vertex presentation, anterior. Artificial amniorrhexis reveals clear fluid. heart rate is consistent with reactive NST. Impression: 37-3/7 weeks intrauterine , here for induction of labor with history of bilateral PEs, MTHFR deficiency, and factor V Leiden deficiency. On Lovenox, all things reassuring at this time. Plan: Close maternal and surveillance. Analgesic options reviewed. Oxytocin per hospital protocol. Anticipate normal spontaneous vaginal delivery. Review of Systems Constitutional: Reports as per HPI Past Medical History Past Medical History: Deep Vein Thrombosis (DVT), Pulmonary Embolus (PE) Additional Past Medical History / Comment(s): Factor V and MTHFR gene mutation History of Any Multi-Drug Resistant Organisms: None Reported Past Surgical History: Adenoidectomy, Tonsillectomy Additional Past Surgical History / Comment(s): left carpal tunnel release, thumb reconstrution Past Anesthesia/Blood Transfusion Reactions: No Reported Reaction Past Psychological History: Anxiety, Depression Smoking Status: Never smoker Past Alcohol Use History: None Reported Past Drug Use History: None Reported - Past Family History Father Family Medical History: No Reported History, Hyperlipidemia Mother History Unknown: Yes Additional Family Medical History / Comment(s): osteopenia, factor V, MTHFR gene mutation Sister(s) History Unknown: Yes Additional Family Medical History / Comment(s): blood clotting disorder that runs in the family. Medications and Allergies Home Medications Medication Instructions Recorded Confirmed Type Calcium Carbonate/Vitamin D3 1 tab PO DAILY 02/24/21 02/24/21 History [Calcium 500 mg Chewable Tablet] Cyclobenzaprine [Flexeril] 5 mg PO ONCE PRN 02/24/21 02/24/21 History Enoxaparin [Lovenox] 100 mg SQ DAILY 02/24/21 02/24/21 History Magnesium 200 mg PO DAILY 02/24/21 02/24/21 History Pnv No.95/Ferrous Fum/Folic AC 1 tab PO DAILY 02/24/21 02/24/21 History [ Multivitamin Tablet] Allergies Allergy/AdvReac Type Severity Reaction Status Date / Time clarithromycin [From Biaxin] Allergy Nausea & Verified 02/24/21 06:25 Vomiting Exam Vital Signs Temp Pulse Resp BP Pulse Ox 02/24/21 06:24 97.5 F L 101 H 16 118/92 97 Intake and Output 02/23/21 02/24/21 02/24/21 22:59 06:59 14:59 Other: Weight 83.915 kg Results Result Diagrams: 02/24/21 06:35 Assessment and Plan Assessment: 37-3/7 weeks intrauterine , history of bilateral PEs years ago, on Lovenox. Here for induction of labor per recommendation of maternal medicine. All signs reassuring. Plan: Oxytocin per hospital protocol. Close maternal and surveillance. Analgesic options reviewed. Anticipate normal spontaneous vaginal delivery. Time with Patient: Less than 30
[2021-02-24] MEDS ORDERED: CITRIC ACID-SODIUM CITRATE 15 ML CUP PO ONE (19:39)
[2021-02-24] MEDS ORDERED: METOCLOPRAMIDE 5 MG/ML 2 ML VIAL IVP PRN (20:38)
[2021-02-24] MEDS ORDERED: diphenhydrAMINE 50 MG/ML 1 ML VIAL IVP PRN ×2 (20:38)
[2021-02-24] MEDS ORDERED: NALOXONE 0.4 MG/ML 1 ML VIAL IV PRN (20:38)
[2021-02-24] MEDS ORDERED: diphenhydrAMINE 50 MG CAP PO PRN (20:38)
[2021-02-24] MEDS ORDERED: ZOLPIDEM 5 MG TAB PO PRN (20:38)
[2021-02-24] MEDS ORDERED: diphenhydrAMINE 25 MG CAP PO PRN (20:38)
[2021-02-24] MEDS ORDERED: ONDANSETRON 4 MG/2 ML VIAL IVP PRN (20:38)
--- NOTE | 2021-02-24 20:38 | P.OP ---
Date of Procedure: 02/24/21 Preoperative Diagnosis: 37-3/7 weeks intrauterine , arrest of descent in the second stage Postoperative Diagnosis: Same, left occiput transverse position Procedure(s) Performed: Primary low transverse section Anesthesia: spinal Surgeon: Angie Duong Tobacco Roller #1: Finn Bailey Estimated Blood Loss (ml): 158 IV fluids (ml): 1,000 Urine output (ml): 50 Pathology: other (Placenta) Condition: stable Disposition: PACU Operative Findings: Liveborn male , scores 8 and 9 at one and 5 minutes respectively, 7 lbs. 9 oz. or 3430 g, left occiput transverse position. Description of Procedure: Patient became completely dilated and had one hour in the second stage of labor. There was no descent past 0 station, a large amount of It, and asynclitic presentation suspected. Decision was made to proceed with primary low transverse section. In addition, decelerations were noted for approximately 30 minutes. Patient is brought to the operating suite where a spinal anesthesia with Duramorph is placed without difficulty. She is put in the dorsal supine position with left lateral uterine displacement. 2 g of Ancef are given. Aguirre catheter placed to direct drainage. The appropriate timeout is performed to assure proper patient and procedural identification. The analgesia is checked and noted to be adequate. A low transverse skin incision is made in this is carried down through the subcutaneous tissue of approximately 3 cm depth. Fascia is isolated, scored, extended bilaterally with curved Kurtz scissors. Peritoneum is next identified and incised, there is no bowel or bladder involvement. Bladder flap was created, and at all times the bladder is Well from the operative field to avoid bladder and/or ureteral injury. A low transverse uterine incision is made in this is extended with blunt dissection. Infant's head is delivered in the left occiput transverse position. There is no nuchal cord noted. The oropharynx, nasopharynx, and external nares were all bulb suctioned on the perineal body. Patient was officially delivered of a liveborn male infant at 2002 hours. Umbilical cord was doubly clamped and ligated, he was handed to waiting nurses for evaluation where scores of 8 and 9 at one and 5 minutes respectively were given. Placenta was delivered manually, it was inspected and noted to be intact with trivascular cord at 2002 hours. Uterus is then massaged and brought forth through the wound. It is wiped clean with a sterile sponge to avoid any retained products of conception. The edges are grasped with Shane clamps. The uterus is closed in a two- step fashion, first layer running locking, second layer imbricated. Bilateral tubes and ovaries were inspected and noted to be normal. Gutters are cleaned with a sterile sponge and the uterus is gently placed back into the pelvic cavity. Surgeon gel is placed on the uterine wound for a history of Lovenox use. Peritoneum was allowed to close by secondary intention. Fascia is closed in a running stitch of 0 Vicryl with over ligation in the midline. Subcutaneous tissue is irrigated, noted to be clean and dry, reapproximated with 3-0 Vicryl in a running stitch. 4-0 undyed Monocryl is used for final skin closure in a subcuticular manner. Steri-Strips and Mastisol are applied to the wound. Uterus is massaged externally for several blood clots through the vagina. Aguirre is noted to be draining clear urine. All sponge needle and enhancement counts are correct. Estimated blood loss 158 mL's. Patient is requesting circumcision for her son.
[2021-02-24] MEDS ORDERED: NALBUPHINE 10 MG/ML (1 ML AMP) IM ONE ×2 (20:39→21:45)
[2021-02-25] MEDS: LACTATED RINGERS 1,000 ML IV SCH ×3 (02:03→14:08)
[2021-02-25] MEDS: IBUPROFEN 600 MG TAB PO SCH ×3 (04:12→20:11)
[2021-02-25] MEDS: ACETAMINOPHEN TAB 500 MG TAB PO SCH ×4 (04:13→20:38)
[2021-02-25 07:17] LABS: Basophils % (A) 0 %; Eosinophils % (A) 0 %; HCT 32.8 % (34.0-46.0); HGB 11.1 gm/dL (11.4-16.0); Lymphocytes # (A) 1.7 k/uL (1.0-4.8); Lymphocytes % (A) 11 %; MCH 31.6 pg (25.0-35.0); MCHC 33.8 g/dL (31.0-37.0); MCV 93.4 fL (80.0-100.0); Mean Platelet Volume 10.7; Monocytes % (A) 7 %; Neutrophils # (A) 12.2 k/uL (1.3-7.7); Neutrophils % (A) 81 %; Platelet Count 216 k/uL (150-450); RBC 3.51 m/uL (3.80-5.40); RDW 12.4 % (11.5-15.5); WBC 15.1 k/uL (3.8-10.6)
--- NOTE | 2021-02-25 07:30 | P.PN ---
Progress Note - Text Progress Note Date: 02/25/21 Patient POD 1 from . Patient received spinal anesthesia with duramorph for post operative pain management. Patient tolerated the procedure well and pain is well controlled. No headaches, N/V, F/C. Patient is able to ambulate without difficulty. All questions answered.
--- NOTE | 2021-02-25 07:32 | P.PN ---
Subjective Progress Note Date: 02/25/21 Principal diagnosis: Doing well day #1 Slept well. Voiding spontaneously. Pain well controlled. Moderate lochia rubra. No complaints Objective - Vital Signs Vital signs: Vital Signs Temp 97.9 F 02/25/21 04:00 Pulse 110 H 02/25/21 04:00 Resp 18 02/25/21 04:00 BP 120/75 02/25/21 04:00 Pulse Ox 97 02/25/21 04:00 Intake & Output 02/24/21 02/25/21 02/25/21 18:59 06:59 18:59 Intake Total 13.7 Output Total 250 1258 Balance -250 -1244.3 Intake: Intake, IV Titration 13.7 Amount Oxytocin 30 Units/500 ml 13.7 Ns 30 unit In Saline 1 500ml.bag @ Per Protocol IV .Q0M [facility] Rx#:[id number] Output: Urine 250 1100 Uretheral (Aguirre) 500 Estimated Blood Loss 158 Other: Voiding Method Indwelling Catheter # Voids 1 - Constitutional General appearance: Present: average body habitus, cooperative - EENT Eyes: Present: PERRLA ENT: Present: hearing grossly normal - Respiratory Respiratory: bilateral: CTA - Cardiovascular Rhythm: regular - Gastrointestinal Gastrointestinal Comment(s): Incision clean and dry, intact, Steri-Strips applied. Abdomen soft, nontender. Fundus firm, midline, symmetric, 18 week size. General gastrointestinal: Present: normal bowel sounds - Integumentary Integumentary: Present: normal - Neurologic Neurologic: Present: CNII-XII intact - Musculoskeletal Musculoskeletal: Present: gait normal, strength equal bilaterally - Psychiatric Psychiatric: Present: A&O x's 3, appropriate affect, intact judgment & insight - Labs CBC & Chem 7: 02/25/21 06:09 Labs: Abnormal Lab Results - Last 24 Hours (Table) 02/25/21 Range/Units 06:09 WBC 15.1 H (3.8-10.6) k/uL RBC 3.51 L (3.80-5.40) m/uL Hgb 11.1 L (11.4-16.0) gm/dL Hct 32.8 L (34.0-46.0) % Neutrophils # 12.2 H (1.3-7.7) k/uL Assessment and Plan Assessment: Doing well post operative day #1. Plan: We'll discuss with Dr. Paulino this morning proper anticoagulation status post C- section. Advanced diet and activity. Circumcision now, likely discharge home tomorrow. Time with Patient: Less than 30
[2021-02-25] MEDS: ENOXAPARIN 100 MG/ML SYRINGE SQ SCH (10:06)
[2021-02-25] MEDS: SENNOSIDES-DOCUSATE SODIUM 1 EACH TAB PO SCH ×2 (10:06→20:12)
[2021-02-25] MEDS: SIMETHICONE 80 MG CHEWABLE PO PRN ×2 (18:05→22:39)
[2021-02-25] MEDS: HYDROcodone/APAP 5-325MG 1 EACH TAB PO PRN (22:39)
[2021-02-26] MEDS: IBUPROFEN 600 MG TAB PO SCH ×4 (02:36→15:48)
[2021-02-26] MEDS: ACETAMINOPHEN TAB 500 MG TAB PO SCH ×2 (02:39→06:55)
[2021-02-26] MEDS: HYDROcodone/APAP 5-325MG 1 EACH TAB PO PRN (04:32)
[2021-02-26] MEDS: LACTATED RINGERS 1,000 ML IV SCH (05:10)
--- NOTE | 2021-02-26 07:59 | P.DS ---
Providers Date of admission: 02/24/21 06:06 Expected date of discharge: 02/26/21 Attending physician: Angie Duong Primary care physician: Stated None Hospital Course: This is a 30-year-old white female 1 para 0 EDC 03/11/2021 at 37-3/7 weeks' gestation. Patient presented for induction per recommendation of maternal medicine, on Lovenox for history of bilateral PE. is otherwise unremarkable, rubella status immune, blood type B+, rupee strep cultures negative. Please see dictated history and physical for details. Patient progressed through labor, became completely dilated, pushed the infant for a little over 1 hour with no descent of station. In addition, late decelerations were noted, therefore the decision was made to proceed with primary low transverse section. She gave to a liveborn male infant with scores of 8 and 9 at one and 5 minutes respectively. He was in the left occiput transverse position, he weighed 7 lbs. 9 oz. or 3430 g. Please see dictated delivery note for details. Estimated blood loss 158 mL's. This morning the patient is doing well. She has been restarted on her Lovenox 100 mg subcu daily. Her incision is clean and dry, intact, Steri-Strips appli ed. Fundus is firm, midline, symmetric, 18 week size. [place] circumcision has been performed. Extremities are negative for edema, breasts are not engorged. Breast-feeding is going well. Patient is judged to be in very good condition for discharge home. She will follow-up with me in the office in [address] Lala would like to see her in the office in 3 weeks. She will call for these appointments. She is reminded no intercourse, tampons or douching. She will use [id number] Advil or Aleve, or Motrin as needed for pain. I've asked to call with any issues with the extremities, pain or redness, or swelling. She is to call with any shortness of breath, difficulties breathing, any respiratory complaints. She will call with any fevers shakes or chills, foul smelling or copious lochia, redness or drainage of the incision, with any pain not alleviated by [id number] products, or indeed with any concerns. Assessment: Doing well second postoperative day Patient Condition at Discharge: Good Plan - Discharge Summary Discharge Rx Participant: No New Discharge Prescriptions: No Action Pnv No.95/Ferrous Fum/Folic AC [ Multivitamin Tablet] 1 tab PO DAILY Enoxaparin [Lovenox] 100 mg SQ DAILY Magnesium 200 mg PO DAILY Cyclobenzaprine [Flexeril] 5 mg PO ONCE PRN PRN Reason: Insomnia Calcium Carbonate/Vitamin D3 [Calcium 500 mg Chewable Tablet] 1 tab PO DAILY Discharge Medication List Calcium Carbonate/Vitamin D3 [Calcium 500 mg Chewable Tablet] 1 tab PO DAILY 02/24/21 [History] Cyclobenzaprine [Flexeril] 5 mg PO ONCE PRN 02/24/21 [History] Enoxaparin [Lovenox] 100 mg SQ DAILY 02/24/21 [History] Magnesium 200 mg PO DAILY 02/24/21 [History] Pnv No.95/Ferrous Fum/Folic AC [ Multivitamin Tablet] 1 tab PO DAILY 02/24/21 [History] Follow up Appointment(s)/Referral(s): Angie Duong MD [STAFF PHYSICIAN] - 2 Weeks Discharge Disposition: HOME SELF-CARE
[2021-02-26] MEDS: SENNOSIDES-DOCUSATE SODIUM 1 EACH TAB PO SCH (08:00)
[2021-02-26 08:02] VITALS: RESP 16
[2021-02-26] MEDS: SIMETHICONE 80 MG CHEWABLE PO PRN (10:47)
[2021-02-26] MEDS: ENOXAPARIN 100 MG/ML SYRINGE SQ SCH (10:48)
[2021-02-26 15:49] VITALS: BP 119/83; PULSE 86; TEMP 98.2
== END 2021-02-26 16:45 | disposition home or self-care (01) | DRG 787 ==
LOC: 4FBP 06:06
PROVIDERS: ADMIT Obstetrics & Gynecology; ATTEND Obstetrics & Gynecology
PROC: 10D00Z1 Extraction of Products of Conception, Low, Open Approach (ICD-10-PCS; principal; 2021-02-24 19:48)
DX: O62.1 Secondary uterine inertia (principal); O99.12 Other diseases of the blood and blood-forming organs and certain disorders involving the immune mechanism complicating childbirth; D68.51 Activated protein C resistance; Z86.711 Personal history of pulmonary embolism; Z83.2 Family history of diseases of the blood and blood-forming organs and certain disorders involving the immune mechanism; Z80.3 Family history of malignant neoplasm of breast; Z80.0 Family history of malignant neoplasm of digestive organs; Z79.82 Long term (current) use of aspirin; Z79.01 Long term (current) use of anticoagulants; Z3A.37 37 weeks gestation of pregnancy; Z37.0 Single live birth; O76 Abnormality in fetal heart rate and rhythm complicating labor and delivery; O99.344 Other mental disorders complicating childbirth; F32.9 Major depressive disorder, single episode, unspecified; F41.9 Anxiety disorder, unspecified; O99.62 Diseases of the digestive system complicating childbirth
CPT/HCPCS: 85025; 86850; 86900; 86901; 88307